=== PATIENT | female | born 1965 | race Caucasian/White ===

== ENCOUNTER → 2018-01-25 01:06 | Outpatient (CLI) | payer BC, SELFPAY ==
--- NOTE | 2018-01-25 13:25 | DI.REPORT_ITS ---
SYMPTOM/DIAGNOSIS: INCREASED SWELLING R22.1, Z83.49, FAMILY H/O THYROID DISEASE. THYROID ULTRASOUND: 01/25 Thyroid ultrasound was performed according to the usual protocol. Right thyroid lobe measures 38 x 31 x 15 mm Left thyroid lobe measures 32 x32 x 15 mm. No dominant thyroid mass seen. There is moderate heterogeneity of both thyroid lobes. The findings are suggestive of multi-nodular goiter. The largest nodules are about 5 mm in diameter bilaterally. CONCLUSION: Findings consistent with multi-nodular goiter. No dominant mass identified.
== END ==
PROVIDERS: PCP Student in an Organized Health Care Education/Training Program; Visit Provider Student in an Organized Health Care Education/Training Program
DX: R22.1 Localized swelling, mass and lump, neck (principal); Z83.49 Family history of other endocrine, nutritional and metabolic diseases; E04.2 Nontoxic multinodular goiter
CPT/HCPCS: 76536

== ENCOUNTER 2018-05-08 00:50 | Outpatient (CLI) | payer BC, SELFPAY ==
--- NOTE | 2018-05-08 15:27 | DI.MAMMO_ITS ---
SYMPTOM/DIAGNOSIS: SCREENING, Z12.31 MAMMOGRAMS: Mammograms were interpreted according to the usual protocol including computer analysis with CAD system, tomosynthesis and C view imaging. Comparison is made with the prior examinations. No suspicious masses or microcalcifications are seen. Well-circumscribed nodules are present in the right breast. These appear stable. Surgical clips are again seen in the right breast. Skin and axillae are unremarkable. IMPRESSION: No evidence for malignancy. Yearly mammography is recommended. Category 2, breast density B. MQSA ASSESSMENT OF FINDINGS: Negative with benign findings. Category 2. Patient will receive a letter notifying them of these results. BI-RADS category B. There are scattered areas of fibroglandular density.
== END 2018-05-08 01:10 ==
PROVIDERS: PCP Student in an Organized Health Care Education/Training Program; Visit Provider Nurse Practitioner Women's Health
DX: Z12.31 Encounter for screening mammogram for malignant neoplasm of breast (principal)
CPT/HCPCS: 77063; 77067

== ENCOUNTER 2018-05-17 11:26 | Outpatient (CLI) | payer BC, SELFPAY ==
--- NOTE | 2018-05-17 11:57 | DI.US_ITS ---
SYMPTOMS/DIAGNOSIS: SUPRASTERNAL SOFT MASS, EVALUATE LOCAL SUPERFICIAL SWELLING MASS, R22.9 ULTRASOUND OF THE NECK: Sonographic evaluation of the neck was performed. No sonographic abnormality is seen in the palpable area as indicated by the patient. Incidental note is made of heterogeneous thyroid gland. It has a similar appearance compared to the ultrasound of the thyroid gland from 01/25/18. IMPRESSION: No sonographic abnormality within the area of concern in the neck.
== END 2018-05-17 11:46 ==
PROVIDERS: PCP Student in an Organized Health Care Education/Training Program; Visit Provider Student in an Organized Health Care Education/Training Program
DX: E07.9 Disorder of thyroid, unspecified (principal); R22.1 Localized swelling, mass and lump, neck
CPT/HCPCS: 76536

== ENCOUNTER 2018-06-04 20:52 | Emergency (ER) | payer BC, SELFPAY ==
[2018-06-04 20:59] VITALS: BP 156/78; PULSE 78; RESP 15; TEMP 37.1; O2SAT 97
--- NOTE | 2018-06-04 21:04 | W.ED.GENAD ---
Discharge Plan Disposition Patient Disposition: HOME Condition: Stable Discharge Details Chief Complaint: RespSymp Clinical Impression: Cough Primary Care Provider: Zeynep Bill ED Provider: Dakota Perdomo Home Meds and New Rx's Prescriptions: New prednisone 20 mg tablet 60 mg PO DAILY 4 Days Qty: 12 RF: 0 Continued ProAir HFA 90 mcg/actuation HFA aerosol inhaler 2 puff IH Q6H PRN (Reason: shortness of breath or wheezing) Qty: 8.5 RF: 0 triamcinolone acetonide 15 GM ointment Topical BID PRNQty: 1 RF: 0 Probiotic 1 EACH capsule 1 ea PO DAILY 90 Days Qty: 1 RF: 0 magnesium oxide 250 MG tablet 500 mg PO DAILY RF: 0 omega-3 fatty acids-fish oil [Fish Oil] 1 EACH capsule 1 ea PO DAILY RF: 0 cholecalciferol (vitamin D3) [Vitamin D3] 2,000 UNIT capsule 6,000 unit PO DAILY RF: 0 cyanocobalamin (vitamin B-12) 2,500 MCG tablet 2,500 mcg PO DAILY RF: 0 omeprazole 20 MG capsule,delayed release(DR/EC) 20 mg PO DAILY Qty: 90 RF: 3 biotin 1 mg capsule 1 mg PO DAILY RF: 0 aspirin 81 MG tablet,chewable 1 tab PO ONCE RF: 0 Discharge Instructions Instructions: Acute Cough (ED) Additional Instructions: Your xray did not show any concerning findings, no pneumonia was seen if cough continues follow up with your primary care provider if you have difficulty breathing, high fevers or severe pain return to the emergency department Medical Decision Making 52 yo female comes in with intermittent cough for 3 weeks, denies hx of asthma or smoking. States her pcp started an inhaler 2 weeks ago but has not had relief. Denies chest pain, dyspnea, fevers, chills. Has clear lung sounds on exam and is speaking in full sentences and appears well systemically but she notes she has felt wheezy. Could be post nasal drip but will xray toe anisha for possible pna and also trial prednisone. Doesn't have cough description typical of pertussis. pt remains stable, xray on my read is negative. If radiology report shows no acute findings will d/c with prednisone, advised f/u with pcp and return precautions given Differential Diagnosis post nasal drip, pna, bronchitis Imaging Data Radiologic Study: Attestation: I personally reviewed and interpreted this imaging study as follows: Imaging: X-Ray My impression: no acute findings Radiologist's impression: no acute findings HPI General Mode of arrival: ambulatory. Date/Time Provider Initiated Documentation: 06/04/18 20:53. Limitations to Documentation: no limitations. Information obtained by: patient. History of Present Illness 52 year old F presents to the emergency department with the chief complaint of cough, described as moderate, Patient started experiencing this week(s) (3) and it has been intermittent. No relieving factors improve symptom(s), No exacerbating factors reported . Patient notes no other symptoms.. Patient did receive the following treatments prior to arrival, other (inhaler) Related Data Home Medications Medication Instructions Recorded Confirmed aspirin 1 tab PO ONCE 06/20/16 06/04/18 triamcinolone acetonide 0 TOPICAL BID PRN #1 tube 09/08/16 05/24/18 Probiotic 1 ea PO DAILY 90 Days #1 tab-cap 03/24/17 06/04/18 cholecalciferol (vitamin D3) 6,000 unit PO DAILY 12/08/17 06/04/18 [Vitamin D3] cyanocobalamin (vitamin B-12) 2,500 mcg PO DAILY 12/08/17 06/04/18 magnesium oxide 500 mg PO DAILY 12/08/17 06/04/18 omega-3 fatty acids-fish oil [Fish 1 ea PO DAILY 12/08/17 06/04/18 Oil] omeprazole 20 mg PO DAILY #90 tab-cap 01/06/18 06/04/18 biotin 1 mg capsule 1 mg PO DAILY cap 05/10/18 06/04/18 albuterol sulfate HFA 90 2 puff IH Q6H PRN #8.5 gm 05/24/18 06/04/18 mcg/actuation aerosol inhaler prednisone 60 mg PO DAILY 4 Days #12 tab 06/04/18 Previous Rx's Medication Instructions Recorded Probiotic 1 ea PO DAILY 90 Days #1 tab-cap 03/24/17 omeprazole 20 mg PO DAILY #90 tab-cap 01/06/18 albuterol sulfate HFA 90 2 puff IH Q6H PRN #8.5 gm 05/24/18 mcg/actuation aerosol inhaler prednisone 60 mg PO DAILY 4 Days #12 tab 06/04/18 Allergies Allergy/AdvReac Type Severity Reaction Status Date / Time Penicillins Allergy Unknown as child Verified 06/04/18 21:02 General Stated Complaint: RespSymp PETEY: 4 Review of Systems Review of Systems All systems reviewed & are unremarkable except as noted in HPI and below Constitutional Denies chills, Denies fever(s) and Denies weakness ENT Denies change in voice Cardiovascular Denies chest pain Gastrointestinal Denies abdominal pain Neurologic Denies weakness PFS Medical History GERD (gastroesophageal reflux disease) Pyloric stenosis, congenital Surgical History Ligation of fallopian tube (10/04/89) Vaginal hysterectomy (04/28/09) Social History adopted: No foster care: No household members: spouse current occupational status: employed current occupation: [employer] Service frequency: 1-2 times per week Smoking/Tobacco Use Status: Former Tobacco Use quit date: 06/06/77 alcohol intake: never substance use type: does not use kristen/protestant: Lutheran Exam Const General: no acute distress Orientation: alert HENMT Head: normal to inspection Ears: external ears normal General nose exam: external nose normal Mouth: moist mucous membranes Eyes General: appearance normal, both eyes and all related structures Neck Neck: normal visual inspection Resp Effort & Inspection: normal respiratory effort and able to speak in complete sentences Cardio Rate: regular rate Skin General skin exam: no rashes or lesions noted Neuro General: alert and oriented x3 Extrem General: normal to inspection Psych Mental Status: mental status grossly normal Course Vital Signs Temperature 37.1 C 06/04/18 20:59 Pulse 78 06/04/18 20:59 Respiratory Rate 15 06/04/18 20:59 Blood Pressure 156/78 H 06/04/18 20:59 Pulse Oximetry 97 06/04/18 20:59 Temperature 37.1 C 06/04/18 20:59 Temperature Source Temporal Artery Scan 06/04/18 20:59 Pulse 78 06/04/18 20:59 Respiratory Rate 15 06/04/18 20:59 Respiratory Effort Non-Labored 06/04/18 21:00 Respiratory Depth Normal 06/04/18 21:00 Blood Pressure 156/78 H 12/30/18 20:59 Blood Pressure Position Sitting 06/04/18 20:59 Pulse Oximetry 97 06/04/18 20:59 Oxygen Delivery Method Room Air 06/04/18 20:59 Oxygen Flow Rate 0 06/04/18 20:59 Pain Level 0 06/04/18 20:59
--- NOTE | 2018-06-04 21:07 | DI.RAD_ITS ---
SYMPTOMS/DIAGNOSIS: COUGH PA AND LATERAL CHEST: Comparison is made with June,. The heart size is normal. The hiatal hernia is again noted. The lungs appear clear with the exception of minimal left basilar scarring or atelectasis. IMPRESSION: Hiatal hernia. No acute abnormality.
--- NOTE | 2018-06-04 21:11 | ED.GENADUL_ITS ---
Discharge Plan Disposition Patient Disposition: HOME Condition: Stable Discharge Details Chief Complaint: RespSymp Clinical Impression: Cough Primary Care Provider: Zeynep Bill ED Provider: Dakota Perdomo Home Meds and New Rx's Prescriptions: New prednisone 20 mg tablet 60 mg PO DAILY 4 Days Qty: 12 RF: 0 Continued ProAir HFA 90 mcg/actuation HFA aerosol inhaler 2 puff IH Q6H PRN (Reason: shortness of breath or wheezing) Qty: 8.5 RF: 0 triamcinolone acetonide 15 GM ointment Topical BID PRNQty: 1 RF: 0 Probiotic 1 EACH capsule 1 ea PO DAILY 90 Days Qty: 1 RF: 0 magnesium oxide 250 MG tablet 500 mg PO DAILY RF: 0 omega-3 fatty acids-fish oil [Fish Oil] 1 EACH capsule 1 ea PO DAILY RF: 0 cholecalciferol (vitamin D3) [Vitamin D3] 2,000 UNIT capsule 6,000 unit PO DAILY RF: 0 cyanocobalamin (vitamin B-12) 2,500 MCG tablet 2,500 mcg PO DAILY RF: 0 omeprazole 20 MG capsule,delayed release(DR/EC) 20 mg PO DAILY Qty: 90 RF: 3 biotin 1 mg capsule 1 mg PO DAILY RF: 0 aspirin 81 MG tablet,chewable 1 tab PO ONCE RF: 0 Discharge Instructions Instructions: Acute Cough (ED) Additional Instructions: Your xray did not show any concerning findings, no pneumonia was seen if cough continues follow up with your primary care provider if you have difficulty breathing, high fevers or severe pain return to the emergency department Medical Decision Making 52 yo female comes in with intermittent cough for 3 weeks, denies hx of asthma or smoking. States her pcp started an inhaler 2 weeks ago but has not had relief. Denies chest pain, dyspnea, fevers, chills. Has clear lung sounds on exam and is speaking in full sentences and appears well systemically but she notes she has felt wheezy. Could be post nasal drip but will xray toe anisha for possible pna and also trial prednisone. Doesn't have cough description typical of pertussis. pt remains stable, xray on my read is negative. If radiology report shows no acute findings will d/c with prednisone, advised f/u with pcp and return precautions given Differential Diagnosis post nasal drip, pna, bronchitis Imaging Data Radiologic Study: Attestation: I personally reviewed and interpreted this imaging study as follows: Imaging: X-Ray My impression: no acute findings Radiologist's impression: no acute findings HPI General Mode of arrival: ambulatory . Date/Time Provider Initiated Documentation: 06/04/18 20:53 . Limitations to Documentation: no limitations . Information obtained by: patient . History of Present Illness 52 year old F presents to the emergency department with the chief complaint of cough, described as moderate, Patient started experiencing this week(s) (3) and it has been intermittent. No relieving factors improve symptom(s), No exacerbating factors reported . Patient notes no other symptoms.. Patient did receive the following treatments prior to arrival, other (inhaler) Related Data Home Medications Medication Instructions Recorded Confirmed aspirin 1 tab PO ONCE 06/20/16 06/04/18 triamcinolone acetonide 0 TOPICAL BID PRN #1 tube 09/08/16 05/24/18 Probiotic 1 ea PO DAILY 90 Days #1 tab-cap 03/24/17 06/04/18 cholecalciferol (vitamin D3) 6,000 unit PO DAILY 12/08/17 06/04/18 [Vitamin D3] cyanocobalamin (vitamin B-12) 2,500 mcg PO DAILY 12/08/17 06/04/18 magnesium oxide 500 mg PO DAILY 12/08/17 06/04/18 omega-3 fatty acids-fish oil [Fish 1 ea PO DAILY 12/08/17 06/04/18 Oil] omeprazole 20 mg PO DAILY #90 tab-cap 01/06/18 06/04/18 biotin 1 mg capsule 1 mg PO DAILY cap 05/10/18 06/04/18 albuterol sulfate HFA 90 2 puff IH Q6H PRN #8.5 gm 05/24/18 06/04/18 mcg/actuation aerosol inhaler prednisone 60 mg PO DAILY 4 Days #12 tab 06/04/18 Previous Rx's Medication Instructions Recorded Probiotic 1 ea PO DAILY 90 Days #1 tab-cap 03/24/17 omeprazole 20 mg PO DAILY #90 tab-cap 01/06/18 albuterol sulfate HFA 90 2 puff IH Q6H PRN #8.5 gm 05/24/18 mcg/actuation aerosol inhaler prednisone 60 mg PO DAILY 4 Days #12 tab 06/04/18 Allergies Allergy/AdvReac Type Severity Reaction Status Date / Time Penicillins Allergy Unknown as child Verified 06/04/18 21:02 General Stated Complaint: RespSymp PETEY: 4 Review of Systems Review of Systems All systems reviewed & are unremarkable except as noted in HPI and below Constitutional Denies chills, Denies fever(s) and Denies weakness ENT Denies change in voice Cardiovascular Denies chest pain Gastrointestinal Denies abdominal pain Neurologic Denies weakness PFS Medical History GERD (gastroesophageal reflux disease) Pyloric stenosis, congenital Surgical History Ligation of fallopian tube (10/04/89) Vaginal hysterectomy (04/28/09) Social History adopted: No foster care: No household members: spouse current occupational status: employed current occupation: [employer] Service frequency: 1-2 times per week Smoking/Tobacco Use Status: Former Tobacco Use quit date: 06/06/77 alcohol intake: never substance use type: does not use kristen/yazdanism: Yazidi Exam Const General: no acute distress Orientation: alert HENMT Head: normal to inspection Ears: external ears normal General nose exam: external nose normal Mouth: moist mucous membranes Eyes General: appearance normal, both eyes and all related structures Neck Neck: normal visual inspection Resp Effort & Inspection: normal respiratory effort and able to speak in complete sentences Cardio Rate: regular rate Skin General skin exam: no rashes or lesions noted Neuro General: alert and oriented x3 Extrem General: normal to inspection Psych Mental Status: mental status grossly normal Course Vital Signs Temperature 37.1 C 06/04/18 20:59 Pulse 78 06/04/18 20:59 Respiratory Rate 15 06/04/18 20:59 Blood Pressure 156/78 H 06/04/18 20:59 Pulse Oximetry 97 06/04/18 20:59 Temperature 37.1 C 06/04/18 20:59 Temperature Source Temporal Artery Scan 06/04/18 20:59 Pulse 78 06/04/18 20:59 Respiratory Rate 15 06/04/18 20:59 Respiratory Effort Non-Labored 06/04/18 21:00 Respiratory Depth Normal 06/04/18 21:00 Blood Pressure 156/78 H 12/30/18 20:59 Blood Pressure Position Sitting 06/04/18 20:59 Pulse Oximetry 97 06/04/18 20:59 Oxygen Delivery Method Room Air 06/04/18 20:59 Oxygen Flow Rate 0 06/04/18 20:59 Pain Level 0 06/04/18 20:59
[2018-06-04] MEDS: predniSONE 20 MG TAB 60 MG PO (21:24)
--- NOTE | 2018-06-04 22:02 | DI.VRAD_ITS ---
EXAM: XR Chest, 2 Views EXAM DATE/TIME: 06/04/2018 9:08 PM CLINICAL HISTORY: 52 years old, female; Signs and symptoms; Cough TECHNIQUE: XR of the chest, 2 views. COMPARISON: CR CHEST 2 VIEWS PA,LAT 06/20/2016 5:11 PM FINDINGS: Lungs: Minimal strandiness in the left lung base is noted. No significant consolidation otherwise. Pleural space: Unremarkable. No pleural effusion. No pneumothorax. Heart/Mediastinum: Heart is not enlarged. A hiatal hernia is again noted with air-fluid level. Bones/joints: Chronic osseous changes. IMPRESSION: 1. Minimal atelectasis/scarring in the left lung base without consolidation. 2. Hiatal hernia. Dictated and Authenticated by: Mook Álvarez MD. Ordering:MAYE Duncan MD
== END 2018-06-04 22:07 | disposition home or self-care (01) ==
PROVIDERS: Emergency Provider Emergency Medicine; PCP Student in an Organized Health Care Education/Training Program
DX: R05 Cough (principal)
CPT/HCPCS: 99283; 71046; J7512

== ENCOUNTER 2018-06-22 02:09 | Outpatient (CLI) | payer BC, SELFPAY ==
--- NOTE | 2018-06-27 12:50 | HOLTER_ITS ---
HOLTER MONITOR REPORT DATE OF DICTATION June 27, 2018 STUDY INDICATION Palpitations. REQUESTING PROVIDER Zeynep Cast D.O. FINDINGS The patient was monitored for 1 day and 23 hours. Baseline rhythm sinus rhythm. Average heart rate 78 beats per minute, range 56 to 170 beats per minute. Rare ectopy, 5 PVCs and 198 PACs. No ventricular tachycardia, atrial fibrillation or SVT. No pauses greater than 3 seconds. No higher degree heart block. 6 patient events. None of these events correlated with arrhythmias. FINAL INTERPRETATION Rare ectopy, otherwise normal study. Olivier Pizarro M.D. DI/gracia T - 06/27/2018
== END 2018-06-22 02:29 ==
PROVIDERS: PCP Student in an Organized Health Care Education/Training Program; Visit Provider Student in an Organized Health Care Education/Training Program
DX: R00.2 Palpitations (principal); I49.3 Ventricular premature depolarization; I49.1 Atrial premature depolarization
CPT/HCPCS: 93225

== ENCOUNTER 2018-06-26 11:57 | Outpatient (CLI) | payer BC, SELFPAY | END 2018-06-26 12:17 | PROVIDERS: PCP Student in an Organized Health Care Education/Training Program; Visit Provider Student in an Organized Health Care Education/Training Program | DX: R00.2 Palpitations (principal); I49.3 Ventricular premature depolarization; I49.1 Atrial premature depolarization | CPT/HCPCS: 93226 ==

== ENCOUNTER 2018-07-12 07:00 | Outpatient (CLI) | payer BC, SELFPAY ==
[2018-07-12 08:33] LABS: Cholesterol 223 mg/dL (50-200)
[2018-07-12 08:42] LABS: TSH (W/Ref FT4) 2.76 uIU/mL (0.358-3.74)
== END 2018-07-12 07:20 ==
PROVIDERS: PCP Student in an Organized Health Care Education/Training Program; Visit Provider Student in an Organized Health Care Education/Training Program
DX: E04.2 Nontoxic multinodular goiter (principal); E06.3 Autoimmune thyroiditis; Z13.220 Encounter for screening for lipoid disorders
CPT/HCPCS: 36415; 82465; 84443

== ENCOUNTER 2018-08-18 01:53 | Outpatient (CLI) | payer BC, SELFPAY ==
--- NOTE | 2018-08-18 13:12 | DI.MAMMO_ITS ---
SYMPTOM/DIAGNOSIS: DIAGNOSTIC, LUMP AXILLARY TAIL, BREAST LUMP AND TENDERNES, N63.0, N64.4 MAMMOGRAMS: Mammograms were interpreted according to the usual protocol including computer analysis with CAD system, tomosynthesis and C view imaging. The breast tissue is composed of fibroglandular densities. There is no dominant mass. A small area of nodularity in the medial portion of the right breast is unchanged when compared with previous images. The patient is status post right breast biopsies. There are no suspicious calcifications. The patient complains of bilateral breast pain, especially in the upper outer quadrant of the right breast.
== END 2018-08-18 02:13 ==
PROVIDERS: PCP Student in an Organized Health Care Education/Training Program; Visit Provider Student in an Organized Health Care Education/Training Program
DX: N64.4 Mastodynia (principal); N63.10 Unspecified lump in the right breast, unspecified quadrant; Z98.890 Other specified postprocedural states
CPT/HCPCS: 77062; 77066; G0279

== ENCOUNTER 2018-08-22 01:23 | Outpatient (CLI) | payer BC, SELFPAY ==
--- NOTE | 2018-08-22 09:22 | DI.COMBO_ITS ---
SYMPTOM/DIAGNOSIS: BREAST LUMP AND TENDERNESS BOTH BREASTS, N63.0, N64.4 ADDITIONAL VIEWS MAMMOGRAM TO COMPLETE EXAM OF 08/18/18: Views were obtained to complete study of 08/18/18. Please see dictation of 08/18/18 exam. BILATERAL BREAST ULTRASOUND: There is no evidence of a right or left solid or cystic mass. SUMMARY: No evidence of malignancy. Category 1. Yearly screening mammography is recommended. Breast density, Category C. SA ASSESSMENT OF FINDINGS: Negative. Category 1. Patient will receive a letter notifying them of these results. Bi-RADS category C. The breasts are heterogeneously dense, which may obscure small masses.
== END 2018-08-22 01:43 ==
PROVIDERS: PCP Student in an Organized Health Care Education/Training Program; Visit Provider Student in an Organized Health Care Education/Training Program
DX: N63.10 Unspecified lump in the right breast, unspecified quadrant; N63.20 Unspecified lump in the left breast, unspecified quadrant; N64.4 Mastodynia
CPT/HCPCS: 76642; 77062; 77066; G0279

== ENCOUNTER 2019-01-29 07:00 | Outpatient (CLI) | payer BC, SELFPAY ==
[2019-01-29 07:39] LABS: HCT 42.5 % (36.0-46.0); HGB 13.6 g/dL (12.0-15.5); Mean Corpuscular Hemoglobin 28.2 pg (27.0-33.0); Mean Corpuscular Volume 88.2 fL (80-95); Mean Platelet Volume 10.9 fL (8.0-11.0); Platelet Count 233 x1000/uL (130-400); RBC 4.82 m/cumm (4.00-5.20); RBC Distribution Width 12.9 % (11.7-14.6); White Blood Cell Count 4.32 k/cumm (4.4-10.8)
[2019-01-29 08:32] LABS: ALT 42 U/L (14-59); AST 19 U/L (15-37); Albumin 3.6 g/dL (3.4-5.0); Alkaline Phosphatase 90 U/L (46-116); Anion Gap 7.6 mmol/L (3-11); BUN 12 mg/dL (7-18); Bilirubin, Total 0.8 mg/dL (0.2-1.0); CO2 30.4 mmol/L (21.0-32.0); CREATININE 0.76 mg/dL (0.55-1.02); Calcium 8.9 mg/dL (8.5-10.1); Chloride 104 mmol/L (98-107); Glucose 113 mg/dL (70-100); Potassium 4.1 mmol/L (3.5-5.1); Sodium 142 mmol/L (136-145); TSH (W/Ref FT4) 2.91 uIU/mL (0.36-3.74); Total Protein 7.1 g/dL (6.4-8.2)
[2019-01-29 08:44] LABS: Vitamin D 25 Total 47.3 ng/ml (30-100)
== END 2019-01-29 07:20 ==
PROVIDERS: PCP Student in an Organized Health Care Education/Training Program; Visit Provider Student in an Organized Health Care Education/Training Program
DX: E06.3 Autoimmune thyroiditis (principal); K58.9 Irritable bowel syndrome, unspecified; R53.83 Other fatigue; L98.9 Disorder of the skin and subcutaneous tissue, unspecified; E04.2 Nontoxic multinodular goiter
CPT/HCPCS: 36415; 80053; 82306; 85027; 84443

== ENCOUNTER 2019-02-20 00:56 | Outpatient (CLI) | payer BC, SELFPAY ==
--- NOTE | 2019-02-20 08:03 | DI.NM_ITS ---
EXAM: NM HEPATOBILIARY CCK GRP CLINICAL HISTORY: RUQ pain TECHNIQUE: CCK HIDA scan was performed according to the usual protocol with intravenous infusion of 4.8 millicuries of technetium 99 labeled mebrofenin and 1.4 micrograms of cholecystokinin COMPARISON: No exams were available for comparison FINDINGS: Following intravenous infusion of radiopharmaceutical, there was prompt homogeneous hepatic uptake an d prompt uptake in the gallbladder, bile ducts and small intestine. Following injection of 1.4 micro grams of cholecystokinin, the gallbladder ejection fraction is calculated at 21% which is in the abno rmally decreased range. IMPRESSION: Abnormally decreased gallbladder ejection fraction of 21 percent. This finding may be associated with chronic cholecystitis.
== END 2019-02-20 01:16 ==
PROVIDERS: PCP Student in an Organized Health Care Education/Training Program; Visit Provider Surgery
DX: R10.11 Right upper quadrant pain (principal); K82.8 Other specified diseases of gallbladder
CPT/HCPCS: 78227

== ENCOUNTER 2019-04-20 06:54 | Day surgery (SDC) | payer BC, SELFPAY ==
[2019-04-20 07:04] VITALS: BP 135/76; PULSE 83; RESP 16; TEMP 36.6; O2SAT 94
[2019-04-20] MEDS: Lactated Ringers 1,000 ML 80 ML IV (07:25)
--- NOTE | 2019-04-20 07:59 | HPE_ITS ---
Date of service: 04/20/19 Time of Service: 08:00 Assessment and Plan Assessment and plan (1) Gastroesophageal reflux disease with esophagitis: Status: Acute Assessment and plan: I advised EGD with possible dilation. The procedure and risks of perforation with need for surgery discussed. Dilation may not improve symptoms or may need to be repeated in the future. May consider biopsy for eosinophilic esophagitis. The patient agrees to proceed. History of Present Illness Narrative: Complains of substernal discomfort about once a week. Feels like a twinge, worse with laying down. Sleeps with special pillow and cannot eat after 5pm. If she does not do this has severe reflux. Is taking PPI daily with good results. Feels occasional throat fullness. Does not having any dysphagia for meat or bread. Recent neck CT normal. Also has discomfort between the shoulder blades that last for a short time. No bloody or black stools Has abdominal pain, feels like diverticulitis is flaring up. Has constipation alternating with normal stool. EGD and colonoscopy 2015 showed esophagitis/Schatzki ring and mild gastritis. Benign colon polyp present. Normal gallbladder US in the past. Recent HIDA showed EF of 21% Review of Systems All systems reviewed & are unremarkable except as noted in HPI and below PFSH Surgical History (Updated 04/20/19 @ 07:03 by Lucinda Hernández) History of surgery (Acute) Bxs from right breast Ligation of fallopian tube (10/04/89) Vaginal hysterectomy (04/28/09) Sparing ovaries, taking out cervix. Dr. García Social History Smoking/Tobacco Use Status: Former Tobacco Use Quit Date: 06/06/77 Tobacco: How many years used: 4 Alcohol Intake: never Drug use: Never Substance use type: does not use Adopted: No Foster care: No Household members: spouse Number of Children: 3 Communication Needs: Corrective Lenses current occupation: [employer] What is your relationship status?: Panel score (0-1 are the most socially isolated patients): 1 What type of physical activity do you participate in: none Frequency: 1-2 times per week [place]/Jehovah'S Witness: Jew Do you feel safe at home: Yes Do you feel safe in your relationship?: Yes Female Reproductive History Menstrual Age of Menarche: 13 Meds Home Medications and Allergies Home Medications Medication Instructions Recorded Confirmed Type aspirin 1 tab PO ONCE 06/20/16 04/20/19 History triamcinolone acetonide 0 TOPICAL BID PRN #1 tube 09/08/16 02/12/19 History Probiotic 1 ea PO DAILY 90 Days #1 tab-cap 03/24/17 04/20/19 Rx Fish Oil 1 ea PO DAILY 12/08/17 04/20/19 History cholecalciferol (vitamin D3) 6,000 unit PO DAILY 12/08/17 04/20/19 History [Vitamin D3] cyanocobalamin (vitamin B-12) 2,500 mcg PO DAILY 12/08/17 04/20/19 History magnesium oxide 500 mg PO DAILY 12/08/17 04/20/19 History omeprazole 20 mg capsule,delayed 20 mg PO DAILY #90 tab-cap 07/21/18 04/20/19 Rx release lovastatin 10 mg tablet 10 mg PO DAILY #90 tab 11/30/18 04/20/19 Rx Allergies Allergy/AdvReac Type Severity Reaction Status Date / Time Penicillins Allergy Unknown as child Verified 04/20/19 07:01 Exam Const General: healthy appearing and not in acute distress Nutritional Appearance: well nourished Orientation: oriented x3 HENMT Head: normal to inspection Eyes Sclera: sclerae normal Pupils: PERRL Neck Neck: no lymphadenopathy Resp Effort & Inspection: normal respiratory effort Auscultation: clear to auscultation bilaterally and no wheezes Cardio Rate: regular rate Rhythm: regular rhythm GI Inspection: non-distended Palpation: soft, no hepatosplenomegaly, no hernias and nontender Skin General skin exam: no rashes or lesions noted Neuro General: alert Cognition: normal cognition Extrem General: normal to inspection Psych Affect: normal affect Attitude: cooperative Results Last Vital Signs Temp 97.9 F 04/20/19 07:04 Pulse 83 04/20/19 07:04 Resp 16 04/20/19 07:04 BP 135/76 04/20/19 07:04 Pulse Ox 94 L 04/20/19 07:04
--- NOTE | 2019-04-20 08:14 | W.PM.DSUDISC ---
Discharge Plan Disposition Patient Disposition: HOME Condition: Good Discharge Details Reason For Visit: EGD Attending Provider: Sandi Randle Primary Care Provider: Zeynep Bill Home Meds and New Rx's Prescriptions: Continued omeprazole 20 mg capsule,delayed release(DR/EC) 20 mg PO DAILY Qty: 90 RF: 3 triamcinolone acetonide 15 GM ointment 0 Topical BID PRNQty: 1 RF: 0 Probiotic 1 EACH capsule 1 ea PO DAILY 90 Days Qty: 1 RF: 0 magnesium oxide 250 MG tablet 500 mg PO DAILY RF: 0 Fish Oil 1 EACH capsule 1 ea PO DAILY RF: 0 cholecalciferol (vitamin D3) [Vitamin D3] 2,000 UNIT capsule 6,000 unit PO DAILY RF: 0 cyanocobalamin (vitamin B-12) 2,500 MCG tablet 2,500 mcg PO DAILY RF: 0 lovastatin 10 mg tablet 10 mg PO DAILY Qty: 90 RF: 3 aspirin 81 MG tablet,chewable 1 tab PO ONCE RF: 0 Discharge Instructions Additional Instructions: Findings: Your EGD showed a moderate sized hiatal hernia. No inflammation was present. Follow up: Routine biopsies were done, my office will contact you with results. You can consider referral for anti-reflux surgery (hiatal hernia repair). Please call if you develop: fevers >101.5 Nausea or Vomiting Abdominal pain that is not transient DAY SURGERY UNIT POST EGD INSTRUCTIONS 1. Because there will be medication in your system for the next 24 hours, you may feel a little sleepy. Your coordination will be affected. Therefore: a. Do not drive or operate dangerous equipment for 24 hours. b. Do not drink alcohol beverages for 24 hours (not even beer). c. Plan to go home and rest for the day. 2. Generally there are no restrictions on your activity after a day or so has gone by, but you may feel a bit fatigued for a few days. 3 After you arrive home you may have a light meal and return to a normal diet as you can tolerate it without feeling sick to your stomach. 4. After surgery, you may feel pain or discomfort. This should be only transient, but if it persists please contact your doctor. 5. If there are any questions regarding the findings of your procedure, please feel free to contact your doctor. 6. If you are unable to contact your doctor with a problem, contact the hospital at [phone]. 7. Continue all your regular medications unless directed otherwise. I understand the above instructions and have no questions. Signature of Patient or Responsible Adult Escort Date/Time Name of Responsible Adult Escort Signature of Nurse Date/Time Activity:: Activity as Tolerated Diet:: As Tolerated Discharge Orders Discharge Orders: Discharge Order (Routine); Ordered 04/20/19 Ordered By: Sandi aRndle DS: Diagnosis Discharge Diagnosis (1) Hiatal hernia: Status: Acute
--- NOTE | 2019-04-20 08:35 | STOM_PTH ---
PATIENT: Celeste Contreras LOC: [facility] U#:[id number] AGE/SX: 53/F ROOM: RE04/20/[address]: Sandi Randle MD : [id number] BED: DIS: 04/20/2019 SPEC #: [id number] RECD: 04/20/19 10:41 STATUS: DENZEL REQ #: [id number] MART: 04/20/19 08:[address]: Sandi Randle DEPT: Surgical Specimen RECD BY: Divya Partida ENTERED: 04/20/19 10:42 SP TYPE: STOMACH OTHR DR: Zeynep Bill DO Tissues: 1 - BIOPSY BOWEL 2 - STOMACH BIOPSY Procedures: GROSS AND MICRO LEVEL 4 Comments: [id number]
[2019-04-20 09:14] VITALS: BP 112/69; PULSE 78; RESP 16; TEMP 35.9; O2SAT 94
--- NOTE | 2019-04-20 11:19 | ENDO_ITS ---
DATE OF PROCEDURE: April 20, 2019 PREOPERATIVE DIAGNOSIS: Reflux. POSTOPERATIVE DIAGNOSIS: Hiatal hernia. PROCEDURE: Esophagogastroduodenoscopy with duodenal and gastric biopsies. SURGEON: Sandi Randle M.D. ANESTHESIA: General. INDICATIONS: This is a 53-year-old woman who reports episodes of reflux that are not controlled with proton pump inhibitors. She also has occasional substernal twinges. She denies any dysphagia. She had a HIDA scan recently that showed a slightly decreased ejection fraction, but did not reproduce a ny symptoms. She denies any significant abdominal pain. PROCEDURE: She was placed in the left lateral decubitus position. Propofol was titrated to sedation . The scope was advanced into her esophagus under direct visualization and down into the stomach and duodenum. There was no duodenitis or ulcers noted. Biopsies were taken from the second portion of the duodenum to evaluate for Celiac disease. The stomach itself showed no inflammation. There were benign Fundic gland polyps present. Routine biopsies were taken from the gastric antrum to evaluate for H. pylori. Retroflex view did show a moderate-sized hiatal hernia. The GE junction was measure d at approximately 35 cm and the diaphragmatic impression was at 39 cm with a subsequent 3-4 cm hiata l hernia. She did have a fairly wide open Schatzki ring and in absence of symptoms, I did not procee d with dilation. There was no evidence of inflammation, masses or Wei's. The air was suctioned from the stomach and the scope withdrawn with no other esophageal lesions found. She tolerated the procedure well and was stable to recovery. She can continue with lifestyle modifications and medications, or could also consider referral for hi atal hernia repair. cc: Zeynep Bill D.O.
== END 2019-04-20 09:59 | disposition home or self-care (01) ==
PROVIDERS: PCP Student in an Organized Health Care Education/Training Program; Visit Provider Surgery
PROC: 0DJ68ZZ Inspection of Stomach, Via Natural or Artificial Opening Endoscopic (ICD-10-PCS; CPT 43235; principal; 2019-04-20 08:15)
DX: K21.9 Gastro-esophageal reflux disease without esophagitis (principal); K44.9 Diaphragmatic hernia without obstruction or gangrene; K31.7 Polyp of stomach and duodenum; K22.2 Esophageal obstruction
CPT/HCPCS: 43239; 88305; NC

== ENCOUNTER 2019-06-29 18:00 | Emergency (ER) | payer BC, SELFPAY ==
[2019-06-29 18:06] VITALS: BP 162/93; PULSE 82; RESP 18; TEMP 36.1; O2SAT 96
--- NOTE | 2019-06-29 18:25 | W.ED.GENAD ---
Discharge Plan Disposition Patient Disposition: HOME Condition: Good Discharge Details Chief Complaint: GenMedical Clinical Impression: Diffuse pain Primary Care Provider: Zeynep Bill ED Provider: Karina Bazzi Home Meds and New Rx's Prescriptions: Continued omeprazole 20 mg capsule,delayed release(DR/EC) 20 mg PO DAILY Qty: 90 RF: 3 triamcinolone acetonide 15 GM ointment 0 Topical BID PRNQty: 1 RF: 0 Probiotic 1 EACH capsule 1 ea PO DAILY 90 Days Qty: 1 RF: 0 magnesium oxide 250 MG tablet 500 mg PO DAILY RF: 0 Fish Oil 1 EACH capsule 1 ea PO DAILY RF: 0 cholecalciferol (vitamin D3) [Vitamin D3] 2,000 UNIT capsule 6,000 unit PO DAILY RF: 0 cyanocobalamin (vitamin B-12) 2,500 MCG tablet 2,500 mcg PO DAILY RF: 0 lovastatin 10 mg tablet 10 mg PO DAILY Qty: 90 RF: 3 aspirin 81 MG tablet,chewable 1 tab PO DAILY RF: 0 cod liver oil Capsule 1 cap PO DAILY RF: 0 Spirulina Powder 3 MISCELLANEOUS RF: 0 Discharge Instructions Additional Instructions: Encourage water intake. Tylenol and/or ibuprofen as needed for discomfort. Begin exercising on a daily basis. Please follow-up with primary care next week for reevaluation. Take a Lyme panel pending. If you develop any fever/chills, increased pain, difficulty breathing or other new/worsening symptoms please seek care urgently once again. Stand Alone Forms: Physical Therapy Referral Referrals: Zeynep Bill DO [Primary Care Provider] - Medical Decision Making Patient is a 53-year-old female with history of GERD, hepatic cyst, hiatal hernia, impaired fasting glucose, lung nodule, KETTY, Schatzki's ring, steatosis of the liver, periodic flutter, IBS, Nighat's thyroiditis. She is presenting today with chief complaint of diffuse pain. She reports she has had intermittent pain, worse between her shoulder blades, for the past few months. Also reports that she has had some discomfort in her abdomen and diffuse discomfort including her extremities. At this time, pain is only between the shoulder blades. She reports that the pain is been intermittent but more consistent for the past 2 days. States she can have pain diffusely and describes generalized achiness. Has not noted to be worse with deep breathing, no fevers, no cough, no chest pain, does not feel worse with exertion, does not feel worse with stretching or movement, does not feel worse with any heavy lifting. No trauma. No change after eating. She reports she recently had an upper endoscopy for her GERD. Also had a recent ultrasound to evaluate her gallbladder. She advised no acute abnormality was noted on either of these studies. On exam, patient is resting comfortably. I am unable to elicit any discomfort on exam. No midline tenderness, paraspinal tenderness. She has full range of motion. No muscle spasm. No focal tenderness with palpation or movement. No pain with AP or lateral compression. No abdominal tenderness. No chest pain. At this point, I differential is wide. She has no focal abnormalities. No weakness. It sounds to be an acute on chronic issue. Unclear as to how long she has had this chronic pain but extensive this has been going on for months with acute increase over the past few days. Plan for baseline labs and chest x-ray. FINDINGS: Lungs: Left basilar streaky opacity consistent with atelectasis. Lungs are otherwise clear. Pleural space: Unremarkable. No pleural effusion. No pneumothorax. Heart/Mediastinum: Borderline enlarged cardiomediastinal silhouette. Moderate size hiatal hernia. Bones/joints: Unremarkable. IMPRESSION: 1. No acute cardiopulmonary process. 2. Moderate hiatal hernia. Labs reviewed. No leukocytosis. No electrolyte abnormalities. TSH is 3.78 but free T4 is normal at 1.26. She has trace lysed blood in her urine, otherwise without abnormality. Tick and Lyme panel pending. Discussed these findings with the patient. She is questioning if this may be associate with fibromyalgia. I advised that this is a chronic issue and she should discuss this further with her primary care provider. At this point, I do not see any evidence of emergent etiology. She was given return precautions. A referral for physical therapy was given. Encourage water intake. We did discuss home remedies [id number] medications that may help with symptomatic management. She was given return precautions. Advised that we will contact her with any positive results from her tick and Lyme panel. All of her questions or concerns were addressed and she is in agreement this plan. HPI General Mode of arrival: ambulatory. Date/Time Provider Initiated Documentation: 06/29/19 18:25. Limitations to Documentation: no limitations. Information obtained by: patient and RN notes reviewed. History of Present Illness 53 year old F presents to the emergency department with the chief complaint of diffuse body pain, maximal between shoulder blades, flank, abdominal pain, described as moderate, Quality is described as aching (diffuse), Patient started experiencing this day(s) and it has been intermittent. No relieving factors improve symptom(s), No exacerbating factors reported . Patient notes no other symptoms.; denies chest pain, cough, diaphoresis, fever/chills, headaches, loss of appetite, nausea/vomiting, rash and shortness of breath. Patient did receive the following treatments prior to arrival, none Related Data Home Medications Medication Instructions Recorded Confirmed aspirin 1 tab PO DAILY 06/20/16 06/29/19 triamcinolone acetonide 0 TOPICAL BID PRN #1 tube 09/08/16 02/12/19 Probiotic 1 ea PO DAILY 90 Days #1 tab-cap 03/24/17 06/29/19 Fish Oil 1 ea PO DAILY 12/08/17 06/29/19 cholecalciferol (vitamin D3) 6,000 unit PO DAILY 12/08/17 06/29/19 [Vitamin D3] cyanocobalamin (vitamin B-12) 2,500 mcg PO DAILY 12/08/17 06/29/19 magnesium oxide 500 mg PO DAILY 12/08/17 06/29/19 omeprazole 20 mg capsule,delayed 20 mg PO DAILY #90 tab-cap 07/21/18 06/29/19 release lovastatin 10 mg tablet 10 mg PO DAILY #90 tab 11/30/18 06/29/19 Spirulina 3 MISCELLANEOUS 06/29/19 cod liver oil 1 cap PO DAILY 06/29/19 06/29/19 Previous Rx's Medication Instructions Recorded Probiotic 1 ea PO DAILY 90 Days #1 tab-cap 03/24/17 omeprazole 20 mg capsule,delayed 20 mg PO DAILY #90 tab-cap 07/21/18 release lovastatin 10 mg tablet 10 mg PO DAILY #90 tab 11/30/18 Allergies Allergy/AdvReac Type Severity Reaction Status Date / Time Penicillins Allergy Unknown as child Verified 06/29/19 18:09 General Stated Complaint: GenMedical PETEY: 3 Review of Systems Constitutional Constitutional: Reports as per HPI, Denies chills, Denies fever(s), Denies headache(s), Denies lethargy and Denies poor appetite Eyes Eyes: Denies change in vision ENT Ears, Nose, Mouth, and Throat: Denies dizziness, Denies headache(s) and Denies neck pain Cardiovascular Cardiovascular: Reports as per HPI, Denies chest pain, Denies chest pain at rest, Denies chest pain with activity, Denies diaphoresis, Denies pedal edema, Denies lightheadedness, Denies radiating jaw, neck or arm pain, Denies palpitations, Denies dyspnea and Denies dyspnea on exertion Respiratory Respiratory: Reports as per HPI, Denies chest congestion, Denies cough, Denies pain on inspiration, Denies pain with cough, Denies dyspnea, Denies dyspnea on exertion and Denies wheezing Gastrointestinal Gastrointestinal: Reports as per HPI, Denies abdominal pain, Denies diarrhea, Denies nausea and Denies vomiting Musculoskeletal Musculoskeletal: Reports as per HPI, Reports back pain, Reports myalgias, Denies deformity, Denies arthralgias, Denies joint swelling, Denies limited range of motion, Denies muscle cramps and Denies neck pain Integumentary/Breasts Skin/Breast: Reports as per HPI and Denies rash Neurologic Neurologic: Reports as per HPI, Denies dizziness and Denies headache(s) Endocrine Endocrine: Denies palpitations Allergic/Immunologic Allergic/Immunologic: Denies wheezing [facility] Medical History GERD (gastroesophageal reflux disease) Nighat's thyroiditis (Acute) 03/08/18 [place] [facility] [place] Pyloric stenosis, congenital Resolved on its own w/o surgery per pt Surgical History History of surgery (Acute) Bxs from right breast Ligation of fallopian tube (10/04/89) Vaginal hysterectomy (04/28/09) Sparing ovaries, taking out cervix. Dr. García Social History Smoking/Tobacco Use Status: Former Tobacco Use Quit Date: 06/06/77 Tobacco: How many years used: 4 Alcohol Intake: never Drug use: Never Substance use type: does not use Adopted: No Foster care: No Household members: spouse Number of Children: 3 Communication Needs: Corrective Lenses current occupation: [employer] What is your relationship status?: Panel score (0-1 are the most socially isolated patients): 1 What type of physical activity do you participate in: none Frequency: 1-2 times per week [place]/Zoroastrianism: Christianity Do you feel safe at home: Yes Do you feel safe in your relationship?: Yes Female Reproductive History Menstrual Age of Menarche: 13 Exam Const General: cooperative, healthy appearing, comfortable, no acute distress and well developed Nutritional Appearance: well nourished and overweight Orientation: alert, awake and oriented x3 HENMT Head: normal to inspection Ears: hearing grossly normal bilaterally Mouth: moist mucous membranes Chest Chest: normal inspection of the chest, normal palpation of entire chest wall, no crepitus, no localized rib tenderness and no tenderness Resp Effort & Inspection: normal respiratory effort, able to speak in complete sentences and no respiratory distress Auscultation: clear to auscultation bilaterally, no rales, no rhonchi and no wheezes Cardio Rate: regular rate Rhythm: regular rhythm Heart Sounds: S1 normal and S2 normal GI Inspection: normal to inspection, no edema and non-distended Palpation: soft, no hepatosplenomegaly, not firm, no guarding, not rigid and nontender Auscultation: normal bowel sounds Back/Spine/Pelvis Back: no CVA tenderness Cervical Spine: normal cervical lordosis and cervical ROM normal Thoracic/Lumbar Spine: thoracic and lumbar spine normal to inspection, thoraco-lumbar ROM normal, No bend over test abnormal, No kyphosis, No mass, No pain with thoraco-lumbar ROM, No paraspinal tenderness, No thoraco-lumbar ROM limited, No scoliosis, No thoraco-lumbar spasm, No thoracic spinal tenderness, No lumbar spinal tenderness and No straight leg raise positive Pelvis: no pain with anterior-posterior compression and no pain with lateral compression Sacroiliac joints: bilaterally nontender Skin General skin exam: no rashes or lesions noted Trauma: no lacerations or abrasions Neuro General: alert, awake and oriented x3 Cognition: normal cognition Speech: speech normal Gait: normal gait Extrem General: normal to inspection, normal capillary refill, no pedal edema, no calf tenderness and normal gait Psych Appearance: grossly normal and well kempt Mental Status: mental status grossly normal Speech and Movement: speech and movement normal Course Vital Signs Vital signs: Vital Signs Temperature 36.1 C L 06/29/19 18:06 Pulse 82 06/29/19 18:06 Respiratory Rate 18 06/29/19 18:06 Blood Pressure 162/93 H 06/29/19 18:06 Pulse Oximetry 96 06/29/19 18:06 Temperature 36.1 C L 06/29/19 18:06 Temperature Source Skin 06/29/19 18:06 Pulse 82 06/29/19 18:06 Respiratory Rate 18 06/29/19 18:06 Respiratory Effort Non-Labored 06/29/19 18:07 Blood Pressure 162/93 H 06/29/19 18:06 Blood Pressure Position Sitting 06/29/19 18:06 Pulse Oximetry 96 06/29/19 18:06 Oxygen Delivery Method Room Air 06/29/19 18:06 Oxygen Flow Rate 0 06/29/19 18:06
[2019-06-29 18:40] LABS: Bilirubin Negative (Negative); Blood Trace-lysed (Negative); Clarity Clear (Clear); Glucose Negative (Negative); Ketones Negative (Negative); Leukocyte Esterase Negative (Negative); Nitrite Negative (Negative); Urobilinogen 0.2 EU/dL (Up TO 0.2); pH 5.5 (5-8)
[2019-06-29 18:53] LABS: Bacteria Few HPF (Negative); C & S Indicated? Yes; Casts Negative LPF (Negative); Crystals Negative HPF (Negative); Epithelial Cells Rare HPF (Negative); Mucus Negative (Negative); RBC 0-2 HPF (0-2)
[2019-06-29 18:59] LABS: Abs Immature Grans 0.02 k/cumm (0.0-0.09); Absolute Basophil Count 0.03 k/cumm (0.0-0.2); Absolute Eosinophil Count 0.08 k/cumm (0.0-0.7); Absolute Lymphocyte Count 2.32 k/cumm (1.2-3.4); Basophils % 0.3; Eosinophils % 0.9; HCT 42.3 % (36.0-46.0); HGB 14.1 g/dL (12.0-15.5); Immature Grans % 0.2 %; Lymphocytes % 24.8; Mean Corp. HGB Concentration 33.3 g/dL (32.0-36.0); Mean Corpuscular Hemoglobin 28.4 pg (27.0-33.0); Mean Corpuscular Volume 85.1 fL (80-95); Mean Platelet Volume 11.3 fL (8.0-11.0); Monocytes % 9.6; Neutrophils % 64.2; Platelet Count 226 x1000/uL (130-400); RBC 4.97 m/cumm (4.00-5.20); RBC Distribution Width 12.8 % (11.7-14.6); White Blood Cell Count 9.35 k/cumm (4.4-10.8)
[2019-06-29 19:20] LABS: ALT 35 U/L (14-59); AST 14 U/L (15-37); Albumin 3.9 g/dL (3.4-5.0); Alkaline Phosphatase 103 U/L (46-116); Anion Gap 7.5 mmol/L (3-11); BUN 17 mg/dL (7-18); Bilirubin, Total 0.8 mg/dL (0.2-1.0); CO2 29.5 mmol/L (21.0-32.0); CREATININE 0.86 mg/dL (0.55-1.02); Calcium 10.4 mg/dL (8.5-10.1); Chloride 101 mmol/L (98-107); Glucose 108 mg/dL (74-106); Magnesium 1.8 mg/dL (1.8-2.4); Potassium 3.7 mmol/L (3.5-5.1); Sodium 138 mmol/L (136-145); TSH (W/Ref FT4) 3.78 uIU/mL (0.36-3.74); Total Protein 7.7 g/dL (6.4-8.2); Troponin I < 0.05 ng/Ml (<0.06)
[2019-06-29 19:36] LABS: FREE T4 1.26 ng/dL (0.76-1.46)
--- NOTE | 2019-06-29 19:44 | DI.RAD_ITS ---
EXAM: XR CHEST 2V PA LATERAL INDICATION: upper chest pain. COMPARISON: XR CHEST 2V PA LATERAL from 06/04/2018 TECHNIQUE: 2D digital imaging was performed. FINDINGS: Heart size is normal. A hiatal hernia is again noted. The lungs appear clear. There is minimal bas ilar scarring. IMPRESSION: No acute abnormality.
--- NOTE | 2019-06-29 19:53 | DI.VRAD_ITS ---
PROCEDURE INFORMATION: Exam: XR Chest, 2 Views Exam date and time: 06/29/2019 7:46 PM Age: 53 years old Clinical indication: Other: Upper chest pain TECHNIQUE: Imaging protocol: XR of the chest Views: 2 views. COMPARISON: CR XR CHEST 2V PA LATERAL 06/04/2018 9:28 PM FINDINGS: Lungs: Left basilar streaky opacity consistent with atelectasis. Lungs are otherwise clear. Pleural space: Unremarkable. No pleural effusion. No pneumothorax. Heart/Mediastinum: Borderline enlarged cardiomediastinal silhouette. Moderate size hiatal hernia. Bones/joints: Unremarkable. IMPRESSION: 1. No acute cardiopulmonary process. 2. Moderate hiatal hernia. Dictated and Authenticated by: Ugo Osborn MD. Ordering:KAMINI Collins MD
[2019-07-02 13:55] LABS: Lyme Ab w Rflx to Lyme Confirm Negative (Negative)
[2019-07-04 17:28] LABS: Anaplasma phagocytophilum Negative (Negative); B. miyamotoi PCR Negative (Negative); Babesia divergens/MO-1 Negative (Negative); Babesia duncani Negative (Negative); Babesia microti Negative (Negative); Ehrlichia chaffeensis Negative (Negative); Ehrlichia ewingii/canis Negative (Negative); Ehrlichia muris eauclairensis Negative (Negative)
== END 2019-06-29 20:20 | disposition home or self-care (01) ==
PROVIDERS: Emergency Provider Physician Assistant; PCP Student in an Organized Health Care Education/Training Program
DX: M54.6 Pain in thoracic spine (principal); M54.5 Low back pain; R10.84 Generalized abdominal pain
CPT/HCPCS: 36415; 80053; 87798; 93005; 99284; 71046; 81003; 81015; 83735; 84439; 84443; 84484; 85025; 86618; 87086; 93010; 99285

== ENCOUNTER 2019-11-09 01:30 | Outpatient (CLI) | payer BC, SELFPAY ==
--- NOTE | 2019-11-09 13:16 | DI.RAD_ITS ---
EXAM: XR ABDOMEN FLAT PLATE CLINICAL HISTORY: possible renal calculi; KUB TECHNIQUE: COMPARISON: No exams were available for comparison FINDINGS: Two views were obtained. Fecal material overlies the left kidney. There are faint nonspecific calci fications in the pelvis, most of which are probably phleboliths. Ureteral stone not entirely exclude d. No definite renal stones seen. No other significant findings. IMPRESSION: Indeterminate calcifications in the pelvis, probably phleboliths. If there is a high clinical suspic ion ureteral stone additional evaluation with CT or IVP may be considered.
== END 2019-11-09 01:50 ==
PROVIDERS: PCP Student in an Organized Health Care Education/Training Program; Visit Provider Student in an Organized Health Care Education/Training Program
DX: N20.0 Calculus of kidney (principal)
CPT/HCPCS: 74018

== ENCOUNTER 2019-12-05 04:06 | Outpatient (CLI) | payer BC, SELFPAY ==
[2019-12-05 07:21] LABS: HCT 44.5 % (36.0-46.0); HGB 14.7 g/dL (12.0-15.5); Mean Corpuscular Hemoglobin 28.9 pg (27.0-33.0); Mean Corpuscular Volume 87.4 fL (80-95); Mean Platelet Volume 11.1 fL (8.0-11.0); Platelet Count 237 x1000/uL (130-400); RBC 5.09 m/cumm (4.00-5.20); RBC Distribution Width 12.9 % (11.7-14.6); White Blood Cell Count 5.18 k/cumm (4.4-10.8)
[2019-12-05 08:26] LABS: ALT 50 U/L (14-59); AST 22 U/L (15-37); Alkaline Phosphatase 77 U/L (46-116); Anion Gap 7.5 mmol/L (3-11); BUN 12 mg/dL (7-18); Bilirubin, Total 1.1 mg/dL (0.2-1.0); CO2 30.5 mmol/L (21.0-32.0); CREATININE 0.82 mg/dL (0.55-1.02); Calcium 9.3 mg/dL (8.5-10.1); Calculated LDL 112 mg/dL (<100); Chloride 103 mmol/L (98-107); Cholesterol 205 mg/dL (<200); Ferritin 56 ng/mL (8-252); Glucose 114 mg/dL (74-106); HDL Cholesterol 52 mg/dL (40-60); Magnesium 2.1 mg/dL (1.8-2.4); Potassium 4.2 mmol/L (3.5-5.1); Sodium 141 mmol/L (136-145); Total Protein 7.3 g/dL (6.4-8.2); Triglyceride 206 mg/dL (<150)
[2019-12-05 08:45] LABS: FREE T4 1.11 ng/dL (0.76-1.46)
[2019-12-05 17:22] LABS: T3,Free 3.5 pg/mL (2.8-5.3)
[2019-12-06 04:23] LABS: Vitamin D 25 Total 46.1 ng/ml (30-100)
== END 2019-12-05 04:26 ==
PROVIDERS: PCP Student in an Organized Health Care Education/Training Program; Visit Provider Student in an Organized Health Care Education/Training Program
DX: G47.33 Obstructive sleep apnea (adult) (pediatric) (principal); K21.0 Gastro-esophageal reflux disease with esophagitis; R53.83 Other fatigue; G25.81 Restless legs syndrome; Z13.220 Encounter for screening for lipoid disorders; E46 Unspecified protein-calorie malnutrition; M89.8X9 Other specified disorders of bone, unspecified site; E06.3 Autoimmune thyroiditis; E86.0 Dehydration; R16.0 Hepatomegaly, not elsewhere classified; R73.01 Impaired fasting glucose
CPT/HCPCS: 36415; 80053; 80061; 82306; 85027; 82728; 83735; 84439; 84443; 84481

== ENCOUNTER 2020-01-03 01:50 | Outpatient (CLI) | payer BC, SELFPAY ==
--- NOTE | 2020-01-03 13:13 | DI.CT_ITS ---
EXAM: CT CHEST WO CLINICAL HISTORY: assess lung nodule for change/growth,R91.1 TECHNIQUE: Imaging Protocol: Axial computed tomography images with coronal and sagittal reformatted images were created and reviewed CONTRAST MATERIAL: Noncontrast. COMPARISON: CT RENAL COLIC WO CONTRAST from 01/29/2016 CT CHEST WITH CONTRAST from 08/10/2016 CT CHEST WITH CONTRAST from 03/07/2017 FINDINGS: Tracheobronchial tree: Patent where visualized. Mediastinum and Marlen: No dominant adenopathy or fluid collection. Pulmonary parenchyma: No consolidation or dominant measurable mass. Minimal scarring at the inferior lingula and right middle lobe.. There has been no change in size or appearance of a 6 millimeter n odule at the right posterior lung base. Pleura: No effusion or pneumothorax. Heart: The heart is not dilated. No coronary artery calcifications are seen. Aorta: Thoracic aorta non-dilated. Upper abdomen: Enlarged fatty liver. Stable low-density lesions, presumably cysts. Large hiatal he rnia.. Bones: Normal. Soft tissues: Unremarkable. IMPRESSION: Stable 6 millimeter nodule in the right lower lobe. Unless the patient is at is at increased risk fo r lung cancer, no further follow-up is necessary. RADIATION DOSE DELIVERED: 530.95mGy.cm Total DLP DATA REPOSITORY: All CT scans at this facility are submitted to the National Radiology Data Registry (NRDR) Dose Index Registry (DIR) with the [employer] (A[employer]). RADIATION OPTIMIZATION: All CT scans at this facility use at least one of these dose optimization te chniques: automated exposure control; mA and/or kV adjustment per patient size (includes targeted exa ms where dose is matched to clinical indication); or iterative reconstruction.
== END 2020-01-03 02:10 ==
PROVIDERS: PCP Student in an Organized Health Care Education/Training Program; Visit Provider Student in an Organized Health Care Education/Training Program
DX: R91.1 Solitary pulmonary nodule (principal)
CPT/HCPCS: 71250

== ENCOUNTER 2020-04-23 02:56 | Outpatient (CLI) | payer BC, SELFPAY ==
[2020-04-23 10:45] LABS: FREE T4 1.08 ng/dL (0.76-1.46)
[2020-05-08 11:44] LABS: T3,Free 3.6 pg/mL
== END 2020-04-23 03:16 ==
PROVIDERS: PCP Student in an Organized Health Care Education/Training Program; Visit Provider Student in an Organized Health Care Education/Training Program
DX: E04.2 Nontoxic multinodular goiter (principal); E06.3 Autoimmune thyroiditis
CPT/HCPCS: 36415; 84439; 84443; 84481

== ENCOUNTER 2020-05-12 00:25 | Outpatient (CLI) | payer BC, SELFPAY ==
--- NOTE | 2020-05-12 06:30 | DI.US_ITS ---
EXAM: US SOFT TISSUE EXTREMITY CLINICAL HISTORY: Evaluate localized tenderness,lt thigh pain,[id number]. TECHNIQUE: Ultrasound was performed using standard protocol. COMPARISON: No exams were available for comparison FINDINGS: Sonographic assessment utilizing grayscale and color Doppler imaging was performed and targeted to th e area of clinical concern. Submitted images reveal no evidence of solid or cystic mass. No obvious muscle tear in this region. No evidence of intermuscular nor intramuscular fluid. IMPRESSION: No evidence of obvious muscle tear, mass, nor fluid collection. If clinically indicated follow-up MR I can be performed. DATA REPOSITORY:
--- NOTE | 2020-05-12 06:30 | DI.US_ITS ---
EXAM: US ABDOMEN CLINICAL HISTORY: off/on abdominal pain, mostly rt,colicy ruq abd pain TECHNIQUE: Ultrasound abdomen performed using standard protocol. COMPARISON: No exams were available for comparison FINDINGS: ABDOMINAL AORTA AND IVC: Visualized portions normal caliber. PANCREAS: Normal where visualized. LIVER: Mildly enlarged. Hyperechoic indicating steatosis. There are also multiple focal liver findi ngs. The largest is a cyst in the left lobe which measures 2.4 x 2.4 centimeter. Three other smalle r cysts are evident in the right hepatic lobe, these measuring up to 1.5 centimetres in size. One of these exhibit some internal echoes. GALLBLADDER: No evidence of cholelithiasis. No evidence of wall thickening. No pericholecystic fluid identified. BILIARY SYSTEM: Common bile duct measures 3 millimeters. No intrahepatic biliary ductal dilation. GARCIA'S SIGN: Negative. KIDNEYS: Left kidney appears appears unremarkable. There are 2 small nonobstructive calculi in the r ight kidney, both measuring 3-4 millimeters. No evidence of hydronephrosis. No renal mass or cyst id entified. SPLEEN: Not enlarged. ASCITES: None seen. IMPRESSION: 1. No evidence of cholelithiasis nor dilatation of the biliary tree 2. Hepatic steatosis. In addition, there are 4 focal findings in the liver, largest being is cyst in the left hepatic lobe measuring 2.4 x 2.4 centimeters. There are 2 smaller cysts in the right hepat ic lobe and the another finding in the right lobe which has some internal echoes and therefore not a simple cyst and will require appropriate follow-up. 3. Small echogenic foci consistent with 2 probable small nonobstructive calculi in the right kidney, both measuring approximately 3-4 millimeters. No obvious calculi evident in the left kidney. Both k idneys exhibit normal size. 4. There is no ascites. DATA REPOSITORY:
== END 2020-05-12 00:45 ==
PROVIDERS: PCP Student in an Organized Health Care Education/Training Program; Visit Provider Student in an Organized Health Care Education/Training Program
DX: M79.652 Pain in left thigh (principal); R10.11 Right upper quadrant pain; K76.0 Fatty (change of) liver, not elsewhere classified; K76.89 Other specified diseases of liver; R93.421 Abnormal radiologic findings on diagnostic imaging of right kidney
CPT/HCPCS: 76881; 76700

== ENCOUNTER 2020-06-23 01:14 | Outpatient (CLI) | payer BC, SELFPAY ==
--- NOTE | 2020-06-23 07:30 | DI.MAMMO_ITS ---
EXAM: MG MAMMO SCREENING CLINICAL HISTORY: screening,Z12.39 TECHNIQUE: Bilateral full field digital CC and MLO mammographic images were obtained with 3D tomosyn thesis and utilizing computer aided detection (CAD). COMPARISON: Available for comparison. FINDINGS: Masses/Architectural Distortion: None seen. Stable right breast nodules are identified. There are st able biopsy clips in the right breast. Microcalcifications: No suspicious pleomorphic-type are seen. Skin Thickening/Nipple Retraction: None. IMPRESSION: 1. No significant interval change with no specific features of malignancy noted. 2. Unless there is more urgent need, screening mammography is recommended, as per [employer] guidelines. BI-RADS Category 2 - Benign Findings Breast Density - Category B - Scattered areas of fibroglandular density Breast density category C or D implies that the patient has dense breast tissue. Dense breast tissue is very common and is not abnormal but dense breast tissue can make it harder to find cancer on a ma mmogram. Also, dense breast tissue may increase their breast cancer risk. This information about the result of the mammogram report was provided to the patient to raise their awareness. Use this report when you speak with the patient about their risks for breast cancer, which includes their family hist ory. At that time, you may recommend for more screening tests (Ultrasound or MRI) as they might be us eful based on their risk. A negative radiographic report should not delay biopsy if a dominant or clinically suspicious mass is present. Up to ten percent of cancers are not identified on mammography. A negative report may reinforce clinical impression. Adenosis and dense breasts may obscure an underlying neoplasm. False positive reports average 6 to 10%. Patient will receive a letter notifying them of these results.
== END 2020-06-23 01:34 ==
PROVIDERS: PCP Student in an Organized Health Care Education/Training Program; Visit Provider Student in an Organized Health Care Education/Training Program
DX: Z12.31 Encounter for screening mammogram for malignant neoplasm of breast (principal)
CPT/HCPCS: 77063; 77067

== ENCOUNTER 2020-09-09 04:02 | Outpatient (CLI) | payer BC, SELFPAY ==
[2020-09-09 07:40] LABS: HCT 43.7 % (36.0-46.0); HGB 14.4 g/dL (11.2-15.7); MCH 28.7 pg (27.0-33.0); MCV 87.1 fL (80-95); MPV 10.9 fL (8.0-11.0); Platelet Count 205 10^3/uL (130-400); RBC 5.02 10^6/uL (3.93-5.22); RDW-SD 38.7 fL; WBC 4.98 10^3/uL (4.4-10.8)
[2020-09-09 08:34] LABS: ALT 42 U/L (14-59); AST 17 U/L (15-37); Alkaline Phosphatase 89 U/L (46-116); Anion Gap 9.2 mmol/L (3-11); BUN 16 mg/dL (7-18); Bilirubin, Total 1.3 mg/dL (0.2-1.0); CO2 29.8 mmol/L (21.0-32.0); CREATININE 0.8 mg/dL (0.55-1.02); Calcium 9.2 mg/dL (8.5-10.1); Calculated LDL 105 mg/dL (<100); Chloride 103 mmol/L (98-107); Cholesterol 184 mg/dL (<200); Glucose 112 mg/dL (74-106); HDL Cholesterol 51 mg/dL (40-60); Sodium 142 mmol/L (136-145); TSH (W/Ref FT4) 2.92 uIU/mL (0.36-3.74); Total Protein 7.3 g/dL (6.4-8.2); Triglyceride 141 mg/dL (<150)
[2020-09-09 08:48] LABS: Hemoglobin A1C 5.9 % (<5.7)
[2020-09-09 17:10] LABS: T3,Free 3.6 pg/mL (2.8-5.3)
[2020-09-11 04:37] LABS: Vitamin D 25 Total 37.3 ng/mL (30-100)
== END 2020-09-09 04:03 | disposition home or self-care (01) ==
LOC: LBO 04:02
PROVIDERS: PCP Student in an Organized Health Care Education/Training Program; Visit Provider Student in an Organized Health Care Education/Training Program
DX: I10 Essential (primary) hypertension (principal); R73.01 Impaired fasting glucose; E04.2 Nontoxic multinodular goiter; E06.3 Autoimmune thyroiditis; E46 Unspecified protein-calorie malnutrition; K21.00 Gastro-esophageal reflux disease with esophagitis, without bleeding; K58.9 Irritable bowel syndrome, unspecified; K76.0 Fatty (change of) liver, not elsewhere classified; M85.88 Other specified disorders of bone density and structure, other site
CPT/HCPCS: 36415; 80053; 80061; 82306; 85027; 83036; 84443; 84481

== ENCOUNTER 2021-03-15 10:24 | Emergency (ER) | payer BC, SELFPAY ==
[2021-03-15] VITALS (64 sets, daily range): BP systolic 107–137; BP diastolic 60–97; PULSE 66–77; RESP 14; TEMP 36.8–37; O2SAT 94–98
[2021-03-15 10:45] LABS: Abs Immature Grans 0.02 10^3/uL (0.0-0.06); Absolute Basophil Count 0.04 10^3/uL (0.0-0.2); Absolute Eosinophil Count 0.06 10^3/uL (0.0-0.7); Absolute Lymphocyte Count 1.65 10^3/uL (1.2-3.4); Absolute Monocyte Count 0.62 10^3/uL (0.1-0.8); Absolute Neutrophil Count 5.55 10^3/uL (1.2-6.7); Basophils % 0.5; Eosinophils % 0.8; HCT 45.9 % (36.0-46.0); HGB 14.8 g/dL (11.2-15.7); Immature Grans % 0.3; Lymphocytes % 20.8; MCH 28.6 pg (27.0-33.0); MCHC 32.2 % (32.0-36.0); MCV 88.6 fL (80-95); MPV 10.8 fL (8.0-11.0); Monocytes % 7.8; Neutrophils % 69.8; Nucleated RBC 0 %; Platelet Count 222 10^3/uL (130-400); RBC 5.18 10^6/uL (3.93-5.22); RDW 12.2 % (11.7-14.6); RDW-SD 40.3 fL; WBC 7.94 10^3/uL (4.4-10.8)
[2021-03-15 10:59] LABS: ALT 32 U/L (14-59); AST 14 U/L (15-37); Albumin 4.2 g/dL (3.4-5.0); Alkaline Phosphatase 108 U/L (46-116); Anion Gap 5.3 mmol/L (3-11); BUN 13 mg/dL (7-18); CO2 31.7 mmol/L (21.0-32.0); CREATININE 0.8 mg/dL (0.55-1.02); Chloride 106 mmol/L (98-107); Glucose 107 mg/dL (74-106); Lipase 161 U/L (73-393); Potassium 4.2 mmol/L (3.5-5.1); Sodium 143 mmol/L (136-145); Total Protein 7.9 g/dL (6.4-8.2)
--- NOTE | 2021-03-15 11:04 | ED.GENADUL_ITS ---
Discharge Plan Disposition Patient Disposition: HOME Condition: Stable Discharge Details Clinical Impression: Abdominal pain, Hernia, hiatal, Liver masses Primary Care Provider: Zeynep Bill ED Provider: Aaron Blair Home Meds and New Rx's Prescriptions: New famotidine [Pepcid] 20 mg tablet 20 mg PO BID Qty: 60 RF: 0 Continued triamcinolone acetonide 0.5 % ointment 1 applic Topical BID PRN (Reason: eczema) Qty: 15 RF: 2 Hold Instructions: Home Medication placed on hold at Doctor's office omeprazole 20 mg capsule,delayed release(DR/EC) 20 mg PO DAILY Qty: 90 RF: 3 Probiotic 15 billion cell capsule See Rx Instructions PO DAILY PRNRF: 0 multivitamin Tablet 1 tab PO DAILY RF: 0 Fish Oil 1 EACH capsule 1 ea PO DAILY RF: 0 lovastatin 10 mg tablet 10 mg PO DAILY Qty: 90 RF: 3 cholecalciferol (vitamin D3) [Vitamin D3] 50 mcg (2,000 unit) capsule 6,000 unit PO DAILY RF: 0 aspirin 81 MG tablet,chewable 1 tab PO DAILY RF: 0 Discharge Instructions Instructions: Hiatal Hernia (ED), Abdominal Pain (ED) Additional Instructions: Use Pepcid 20 mg twice a day and discuss ongoing dosing with your multiple cut off saw operator or general surgeon. Please contact your surgeon to arrange follow-up. Call tomorrow. Please follow-up with your primary care physician. Be sure to discuss incidental findings noted on CT imaging. Additional outpatient diagnostic testing may be necessary. Return to the ER immediately for any worsening or new concerning symptoms. Referrals: Zeynep Bill DO [Primary Care Provider] - Discharge Data Discharge Date/Time-TO BE ENTERED AT DEPARTURE: 03/15/21 14:25 Medical Decision Making 1100 --55-year-old female with multiple medical problems including history of biliary dysfunction, hiatal hernia, GERD, here with severe mid upper abdominal pain since 7 AM this morning. Patient is hemodynamically stable. Bedside [id number] ultrasound was performed by me and gallbladder was visualized, there is no pericholecystic fluid, normal gallbladder wall thickness, no stones visualized. Patient does have a large liver on ultrasound. Patient has no sonographic Luna sign. Plan to check labs including LFTs and lipase to assess for pancreatitis. Consider ulcer and bowel perforation. Plan to obtain CT of the abdomen pelvis to assess for acute surgical pathology patient was offered Dilaudid 1 mg IV and has declined. I will give Pepcid 20 mg IV. --Labs reviewed and nondiagnostic. No leukocytosis, normal LFTs, normal lipase. I obtained and reviewed outside hospital records: Hepatobiliary scan performed 03/11/2021 impression: No evidence of acute cholecystitis or biliary obstruction. Abnormal gallbladder ejection fraction of 32%. --CT of the abdomen pelvis was interpreted by radiology:IMPRESSION: Extensive diverticulosis without evidence of acute diverticulitis. Hepatic steatosis, multiple liver cysts and hiatal hernia incidentally noted. Patient reassessed and notes complete resolution of pain. I suspect hiatal hernia causing intermittent symptoms. I will have her follow-up with surgery as scheduled. All results were discussed with the patient. Abdominal exam benign on reassessment. Disposition decision was made weighing the risks and benefits of hospitalization versus outpatient treatment, the risk for further decompensation, and the patient's wishes. The patient was stable and requested discharge. Prior to discharge, my usual and customary return precautions were reviewed with the patient - this included follow-up instructions and reason to return to the emergency department if condition worsens, does not improve as expected, or other new concerns arise. HPI General Mode of arrival: ambulatory . Date/Time Provider Initiated Documentation: 03/15/21 10:26 . Limitations to Documentation: no limitations . Information obtained by: patient . HPI Narrative: 55-year-old female with multiple medical problems including history of GERD, steatosis of the liver, hepatomegaly, biliary dysfunction, here with chief complaint of abdominal pain. Patient notes pain in mid upper abdomen that started around 7 AM this morning. Pain is sharp. Pain is persisted. Pain is severe currently rated 8/10. No associated nausea or vomiting. Normal bowel movement this morning. Patient states that she typically has intermittent flare of what she thinks is gallbladder pain over the past 6 months to a year. She is being followed for this and had a recent HIDA scan at [facility]. Patient notes pain today seems somewhat different. Related Data Home Medications Medication Instructions Recorded Confirmed aspirin 1 tab PO DAILY 06/20/16 03/15/21 Fish Oil 1 ea PO DAILY 12/08/17 03/15/21 triamcinolone acetonide 0.5 % 1 applic TOPICAL BID PRN #15 g 05/21/20 03/15/21 topical ointment lovastatin 10 mg tablet 10 mg PO DAILY #90 tab 12/31/20 03/15/21 omeprazole 20 mg capsule,delayed 20 mg PO DAILY #90 tab-cap 01/28/21 03/15/21 release Lactobacillus acidophilus and See Rx Instructions PO DAILY PRN 02/24/21 03/15/21 rhamnosus 15 billion cell capsule tab-cap cholecalciferol (vitamin D3) 50 6,000 unit PO DAILY 02/24/21 03/15/21 mcg (2,000 unit) capsule multivitamin 1 tab PO DAILY 02/24/21 03/15/21 famotidine [Pepcid] 20 mg PO BID #60 tab 03/15/21 Previous Rx's Medication Instructions Recorded triamcinolone acetonide 0.5 % 1 applic TOPICAL BID PRN #15 g 05/21/20 topical ointment lovastatin 10 mg tablet 10 mg PO DAILY #90 tab 12/31/20 omeprazole 20 mg capsule,delayed 20 mg PO DAILY #90 tab-cap 01/28/21 release famotidine [Pepcid] 20 mg PO BID #60 tab 03/15/21 Allergies Allergy/AdvReac Type Severity Reaction Status Date / Time Penicillins Allergy Unknown as child Verified 03/15/21 10:31 General Stated Complaint: Abd Prob PETEY: 3 Review of Systems All systems reviewed & are unremarkable except as noted in HPI and below Constitutional Constitutional: Denies fever(s) Gastrointestinal Gastrointestinal: Reports as per HPI [facility] Medical History Anxiety Breast tenderness Pain and tenderness, LEFT, upper/outer (almost a line from axilla toward nipple)(no nodule on exam, but softer/pliable?) ik GERD (gastroesophageal reflux disease) Nighat's thyroiditis 03/08/18 [place] [facility] [place] Pyloric stenosis, congenital Resolved on its own w/o surgery per pt Surgical History History of surgery Bxs from right breast Ligation of fallopian tube (10/04/89) Vaginal hysterectomy (04/28/09) Sparing ovaries, taking out cervix. Dr. García Family History Mother , Lung CA Diabetes Personal history of malignant neoplasm lung ca Sister No problems noted. Sister Hyperlipidemia Grandfather , Enlarged heart Diabetes Maternal Aunt Diabetes Social History Smoking/Tobacco Use Status: Former Tobacco Use Quit Date: 06/06/77 Tobacco: How many years used: 4 Smoking risk assessment performed?: Yes Alcohol Intake: never Drug use: Never Substance use type: does not use Adopted: No Foster care: No Household members: spouse Number of Children: 3 Communication Needs: Corrective Lenses current occupation: [employer] What is your relationship status?: Panel score (0-1 are the most socially isolated patients): 1 What type of physical activity do you participate in: none Frequency: 1-2 times per week [place]/Sabianist: Episcopalian Do you feel safe at home: Yes Do you feel safe in your relationship?: Yes Female Reproductive History Menstrual Age of Menarche: 13 Exam Const General: cooperative and uncomfortable HENMT Mouth: moist mucous membranes Eyes Conjunctivae: normal conjunctivae Sclera: normal sclerae EOM: EOM intact bilaterally Neck Neck: trachea midline and supple Resp Auscultation: clear to auscultation bilaterally, no rales, no rhonchi and no wheezes Cardio Rate: regular rate and not tachycardic Rhythm: regular rhythm GI Palpation: soft, not firm, no guarding, no masses, not rigid and tender in the epigastrum; not in the RUQ Skin General skin exam: no rashes or lesions noted Neuro General: patient alert, patient awake, patient oriented x3 and tone normal Extrem General: no edema Psych Appearance: grossly normal Mental Status: mental status grossly normal Speech and Movement: speech and movement normal Course Vital Signs Vital signs: Vital Signs Temperature 37.0 C 03/15/21 10:27 Pulse 72 03/15/21 10:27 Blood Pressure 129/97 H 03/15/21 10:27 Pulse Oximetry 96 03/15/21 10:27 Temperature 37.0 C 03/15/21 10:27 Temperature Source Temporal Artery Scan 03/15/21 10:27 Pulse 72 03/15/21 10:27 Respiratory Effort Non-Labored 03/15/21 10:30 Blood Pressure 129/97 H 03/15/21 10:27 Blood Pressure Position Sitting 03/15/21 10:27 Pulse Oximetry 96 03/15/21 10:27 Oxygen Delivery Method Room Air 03/15/21 10:27 Oxygen Flow Rate 0 03/15/21 10:27 Pain Level 10 03/15/21 10:27 Lab/Test Results Lab/Test Results: Laboratory Tests Range/Units 03/15/21 03/15/21 10:35 10:35 WBC (4.4-10.8) 10^3/uL 7.94 RBC (3.93-5.22) 10^6/uL 5.18 Hgb (11.2-15.7) g/dL 14.8 Hct (36.0-46.0) % 45.9 MCV (80-95) fL 88.6 MCH (27.0-33.0) pg 28.6 MCHC (32.0-36.0) % 32.2 RDW (11.7-14.6) % 12.2 Plt Count (130-400) 10^3/uL 222 MPV (8.0-11.0) fL 10.8 Immature Gran % 0.3 Neutrophils % 69.8 Lymphocytes % 20.8 Monocytes % 7.8 Eosinophils % 0.8 Basophils % 0.5 Nucleated RBC % % 0 Absolute Neutrophils (1.2-6.7) 10^3/uL 5.55 Absolute Lymphocytes (1.2-3.4) 10^3/uL 1.65 Absolute Monocytes (0.1-0.8) 10^3/uL 0.62 Absolute Eosinophils (0.0-0.7) 10^3/uL 0.06 Absolute Basophils (0.0-0.2) 10^3/uL 0.04 Sodium (136-145) mmol/L 143 Potassium (3.5-5.1) mmol/L 4.2 Chloride (98-107) mmol/L 106 Carbon Dioxide (21.0-32.0) mmol/L 31.7 Anion Gap (3-11) mmol/L 5.3 BUN (7-18) mg/dL 13 Creatinine (0.55-1.02) mg/dL 0.8 Estimated GFR/1.73 m2 (mL/min/1.73m2) >= 60.00 Glucose (74-106) mg/dL 107 H Calcium (8.5-10.1) mg/dL 9.2 Total Bilirubin (0.2-1.0) mg/dL 1.0 AST (15-37) U/L 14 L ALT (14-59) U/L 32 Alkaline Phosphatase (46-116) U/L 108 Total Protein (6.4-8.2) g/dL 7.9 Albumin (3.4-5.0) g/dL 4.2 Lipase (73-393) U/L 161
[2021-03-15 11:10] LABS: Calcium 9.4 mg/dL (8.5-10.1)
[2021-03-15 11:13] LABS: Bilirubin Negative (Negative); Blood Trace-lysed (Negative); Clarity Clear (Clear); Glucose Negative (Negative); Ketones Negative (Negative); Leukocyte Esterase Negative (Negative); Nitrite Negative (Negative); Specific Gravity >= 1.030 (1.005-1.025); Urobilinogen 0.2 EU/dL (Up TO 0.2); pH 5.5 (5-8)
[2021-03-15 11:20] LABS: Bacteria Rare HPF (Negative); C & S Indicated? No; Casts Negative LPF (Negative); Crystals Negative HPF (Negative); Epithelial Cells Few HPF (Negative); Mucus Negative (Negative); WBC 0-2 HPF (0-5)
[2021-03-15 11:59] LABS: Source Nasal/Nares
[2021-03-15] MEDS: Lactated Ringers 1,000 ML 125 ML IV (12:22)
--- NOTE | 2021-03-15 12:28 | DI.CT_ITS ---
Exam(s) CT ABDOMEN PELVIS W EXAM: CT ABDOMEN PELVIS W CLINICAL HISTORY: mid upper abd pain. TECHNIQUE: Imaging Protocol: Axial computed tomography images with coronal and sagittal reformatted images were created and reviewed CONTRAST MATERIAL: Intravenous: Omnipaque 100cc Oral: None COMPARISON: CT CHEST ABD WITH CONTRAST from 02/10/2016 FINDINGS: VISUALIZED LUNG BASES: There is a 6 millimeter nodule in the lateral basal segment of the right lower lobe which is unchanged from 2016 and therefore benign. Also nodular density in the anterior basal segment of the left lower lobe which is also most probably benign exhibiting minimal change from 2016 .. There are no pleural effusions. ABDOMEN: There is a prominent retrocardiac hiatal hernia, larger than previous There is no ascites. LIVER: There are multiple cysts in the liver, more numerous in the right hepatic lobe. There is a si ngle cyst in left hepatic lobe. All of these cysts of slightly increased in size from 2016. The lar gest is again noted to be inferiorly in the right hepatic lobe and measures 2.8 cm x 2.1 cm, but stil l appears cystic. GALLBLADDER/BILIARY: No obvious gallbladder pathology. CBD is not dilated. PANCREAS: No evidence of pancreatic mass nor dilatation of the pancreatic duct. SPLEEN: Spleen is not enlarged. No obvious intrasplenic lesions. Splenic and portal veins are paten t. ADRENALS: There is a small 8 x 9 millimeter nodule in the right adrenal gland, unchanged from previou s and probably a small adenoma. Left adrenal gland remains unremarkable. KIDNEYS:No cysts evident. No solid renal masses. No calculi nor hydronephrosis.. ABDOMINAL AORTA: Abdominal aorta is not enlarged. LYMPH NODES:There is no retroperitoneal nor paraaortic adenopathy. ABDOMINAL WALL: There is a left inguinal hernia which contains fat and no bowel loops. GI: There is no evidence of bowel obstruction, free air, nor abscess. PELVIS: GI: No evidence of appendicitis.Sigmoid diverticulosis. There appears to be some edema of the lower sigmoid wall, probably an element of diverticulitis. No perforation. No abscess. No free air. No free fluid. LYMPH NODES: There is no intrapelvic nor inguinal adenopathy. REPRODUCTIVE: Uterus is surgically absent. Left ovary is identified appears unremarkable. Right ova ry is difficult to identify from adjacent non-opacified bowel loops in the pelvis. URINARY BLADDER: No calculi nor obvious masses evident OSSEOUS: No significant osseous lesions. IMPRESSION: 1. Moderate-large size hiatal hernia which has increased in size from 2016. 2. Lung base findings as above which are unchanged from 2016 and therefore benign. There are no pleu ral effusions. 3. Multiple cysts in the liver which have increased in size from 2016 but still remain benign appeara nce. 4. Stable 8-9 millimeter right adrenal nodule, unchanged from 2016 and therefore probably a benign ad enoma. 5. Sigmoid diverticulosis. Possible subtle diverticulitis in the sigmoid. No free air. No abscess . 6. No evidence of appendicitis. Uterus is again noted to be surgically absent. There are no abnormal adnexal masses. RADIATION DOSE DELIVERED: 1,385.55mGy.cm Total DLP DATA REPOSITORY: All CT scans at this facility are submitted to the National Radiology Data Registry (NRDR) Dose Index Registry (DIR) with the [employer] (ACR). RADIATION OPTIMIZATION: All CT scans at this facility use at least one of these dose optimization te chniques: automated exposure control; mA and/or kV adjustment per patient size (includes targeted exa ms where dose is matched to clinical indication); or iterative reconstruction.
[2021-03-15] MEDS: Omnipaque 350 MG/ML 100 ML BTL IJ (12:29)
[2021-03-15] MEDS: Normal Saline - Diluent 50 ML VIAL IV (12:29)
--- NOTE | 2021-03-15 13:09 | DI.VRAD_ITS ---
PROCEDURE INFORMATION: Exam: CT Abdomen And Pelvis With Contrast Exam date and time: 03/15/2021 11:01 AM Age: 55 years old Clinical indication: Abdominal pain; Generalized; Patient HX: Abd pain - mid. This am. No recent surgeries TECHNIQUE: Imaging protocol: Computed tomography of the abdomen and pelvis with contrast. Radiation optimization: All CT scans at this facility use at least one of these dose optimization techniques: automated exposure control; mA and/or kV adjustment per patient size (includes targeted exams where dose is matched to clinical indication); or iterative reconstruction. Contrast material: OMNI 350; Contrast volume: 100 ml; Contrast route: INTRAVENOUS (IV); COMPARISON: CT CHEST ABD WITH CONTRAST 11/13/2015 08:16 FINDINGS: Lungs: Visualized lung bases are clear. There is a large paraesophageal hiatal hernia containing much of the stomach. Liver: Liver shows mild fatty infiltration. There are multiple low-attenuation nodules probably representing cysts. Gallbladder and bile ducts: Normal. No calcified stones. No ductal dilation. Pancreas: Normal. No mass or ductal dilation. Spleen: Normal. No splenomegaly. Adrenal glands: Normal. No mass. Kidneys and ureters: Normal. No hydronephrosis, calculus, cyst or mass. Stomach and bowel: There is hiatal hernia as noted above. Small bowel loops throughout the abdomen appear normal. There is extensive diverticulosis throughout the colon but no definite wall thickening or acute inflammatory changes are seen. Appendix: No evidence of appendicitis. Intraperitoneal space: Unremarkable. No free air. No significant fluid collection. Vasculature: Unremarkable. No abdominal aortic aneurysm or significant atherosclerosis. Lymph nodes: No enlarged retroperitoneal or mesenteric lymph nodes. Urinary bladder: No mass or wall thickening. Reproductive: Previous hysterectomy. Bones/joints: Unremarkable. No acute fracture. No lytic lesion. Soft tissues: Unremarkable. IMPRESSION: Extensive diverticulosis without evidence of acute diverticulitis. Hepatic steatosis, multiple liver cysts and hiatal hernia incidentally noted. Dictated and Authenticated by: Aden Khan MD. Ordering:SHEILA Walker MD
[2021-03-15 23:59] LABS: COVID-19 PCR Negative (Negative)
--- NOTE | 2021-03-16 08:30 | NUR.NOTE ---
spoke to Celeste-informed that covid test was negative.Nursing Note:
== END 2021-03-15 14:25 | disposition home or self-care (01) ==
PROVIDERS: Emergency Provider Student in an Organized Health Care Education/Training Program; PCP Student in an Organized Health Care Education/Training Program
DX: K44.9 Diaphragmatic hernia without obstruction or gangrene (principal); K76.89 Other specified diseases of liver; R10.11 Right upper quadrant pain; R10.12 Left upper quadrant pain
CPT/HCPCS: 36415; 80053; 83690; 87635; 99285; 74177; 81003; 81015; 85025; 99284; J3490

== ENCOUNTER 2021-03-18 04:12 | Outpatient (CLI) | payer BC, SELFPAY ==
[2021-03-18 07:27] LABS: HGB 14.3 g/dL (11.2-15.7); MCH 28.5 pg (27.0-33.0); MCHC 32.5 % (32.0-36.0); MCV 87.6 fL (80-95); MPV 11.2 fL (8.0-11.0); Platelet Count 214 10^3/uL (130-400); RBC 5.02 10^6/uL (3.93-5.22); RDW 12.2 % (11.7-14.6); RDW-SD 39.4 fL; WBC 5.15 10^3/uL (4.4-10.8)
[2021-03-18 08:54] LABS: ALT 36 U/L (14-59); AST 16 U/L (15-37); Alkaline Phosphatase 92 U/L (46-116); Anion Gap 7.1 mmol/L (3-11); BUN 11 mg/dL (7-18); Bilirubin, Total 1.2 mg/dL (0.2-1.0); CO2 30.9 mmol/L (21.0-32.0); CREATININE 0.8 mg/dL (0.55-1.02); Calcium 9.1 mg/dL (8.5-10.1); Chloride 103 mmol/L (98-107); Glucose 105 mg/dL (74-106); Potassium 4.1 mmol/L (3.5-5.1); Sodium 141 mmol/L (136-145); TSH (W/Ref FT4) 3.11 uIU/mL (0.36-3.74); Total Protein 7.1 g/dL (6.4-8.2)
[2021-03-18 16:23] LABS: T3,Free 3.3 pg/mL (2.8-5.3)
== END 2021-03-18 04:13 | disposition home or self-care (01) ==
LOC: LBO 04:12
PROVIDERS: PCP Student in an Organized Health Care Education/Training Program; Visit Provider Student in an Organized Health Care Education/Training Program
DX: R53.83 Other fatigue; E06.3 Autoimmune thyroiditis; E04.2 Nontoxic multinodular goiter; K21.00 Gastro-esophageal reflux disease with esophagitis, without bleeding; K76.0 Fatty (change of) liver, not elsewhere classified; K58.9 Irritable bowel syndrome, unspecified; R16.0 Hepatomegaly, not elsewhere classified; G47.33 Obstructive sleep apnea (adult) (pediatric); R10.13 Epigastric pain; R73.01 Impaired fasting glucose
CPT/HCPCS: 36415; 80053; 85027; 84443; 84481

== ENCOUNTER 2021-03-23 13:09 | Outpatient (CLI) | payer BC, SELFPAY ==
[2021-03-23 12:46] LABS: Abs Immature Grans 0.01 10^3/uL (0.0-0.06); Absolute Basophil Count 0.03 10^3/uL (0.0-0.2); Absolute Eosinophil Count 0.09 10^3/uL (0.0-0.7); Absolute Lymphocyte Count 1.43 10^3/uL (1.2-3.4); Absolute Neutrophil Count 5.42 10^3/uL (1.2-6.7); Basophils % 0.4; Eosinophils % 1.2; HCT 41.8 % (36.0-46.0); HGB 13.6 g/dL (11.2-15.7); Immature Grans % 0.1; Lymphocytes % 19.1; MCH 28.6 pg (27.0-33.0); MCHC 32.5 % (32.0-36.0); MCV 87.8 fL (80-95); MPV 10.8 fL (8.0-11.0); Monocytes % 6.7; Neutrophils % 72.5; Nucleated RBC 0 %; Platelet Count 188 10^3/uL (130-400); RBC 4.76 10^6/uL (3.93-5.22); RDW 12.1 % (11.7-14.6); RDW-SD 39.6 fL; WBC 7.48 10^3/uL (4.4-10.8)
== END 2021-03-23 13:10 | disposition home or self-care (01) ==
LOC: LBO 13:10
PROVIDERS: PCP Student in an Organized Health Care Education/Training Program; Visit Provider Student in an Organized Health Care Education/Training Program
DX: K57.32 Diverticulitis of large intestine without perforation or abscess without bleeding (principal); R10.9 Unspecified abdominal pain
CPT/HCPCS: 36415; 85025

== ENCOUNTER → 2021-09-14 01:24 | Outpatient (CLI) | payer BC, SELFPAY ==
--- NOTE | 2021-09-14 10:35 | DI.MAMMO_ITS ---
Exam(s) MAMMO SCREENING EXAM: MAMMO SCREENING CLINICAL HISTORY: SCREENING, Z12.31 TECHNIQUE: Mammograms were interpreted according to the usual protocol including computer analysis w Taplet CAD system, tomosynthesis and C-view imaging. COMPARISON: 2014 through 2020 FINDINGS: The breasts are composed of scattered fibroglandular densities, Breast Density category B. Two biopsy clips are again noted in the right breast. There are stable areas of nodularity. No susp icious masses or suspicious microcalcifications are seen. No skin thickening or abnormal axillary lymph nodes are seen. There has been no significant change from prior exams. IMPRESSION: BI-RADS Cat 2 - Benign Findings Yearly screening mammography is recommended. Breast Density - Category B, scattered fibroglandular densities. A negative radiographic report should not delay biopsy if a dominant or clinically suspicious mass is present. Up to ten percent of cancers are not identified on mammography. A negative report may reinforce clinical impression. Adenosis and dense breasts may obscure an underlying neoplasm. False positive reports average 6 to 10%. Patient will receive a letter notifying them of these results.
== END ==
PROVIDERS: PCP Student in an Organized Health Care Education/Training Program; Visit Provider Nurse Practitioner Women's Health
DX: Z12.31 Encounter for screening mammogram for malignant neoplasm of breast (principal)
CPT/HCPCS: 77063; 77067

== ENCOUNTER 2021-09-28 05:01 | Outpatient (CLI) | payer BC, SELFPAY ==
[2021-09-28 08:57] LABS: ALT 27 U/L (14-59); AST 15 U/L (15-37); Albumin 3.7 g/dL (3.4-5.0); Alkaline Phosphatase 108 U/L (46-116); Anion Gap 5.1 mmol/L (3-11); BUN 13 mg/dL (7-18); Bilirubin, Total 0.7 mg/dL (0.2-1.0); CO2 30.9 mmol/L (21.0-32.0); CREATININE 0.7 mg/dL (0.55-1.02); Calcium 8.8 mg/dL (8.5-10.1); Calculated LDL 103 mg/dL (<100); Chloride 106 mmol/L (98-107); Cholesterol 190 mg/dL (<200); Glucose 102 mg/dL (74-106); HDL Cholesterol 55 mg/dL (40-60); Sodium 142 mmol/L (136-145); TSH (W/Ref FT4) 2.52 uIU/mL (0.36-3.74); Total Protein 6.7 g/dL (6.4-8.2); Triglyceride 163 mg/dL (<150)
== END 2021-09-28 05:02 | disposition home or self-care (01) ==
LOC: LBO 05:01
PROVIDERS: PCP Student in an Organized Health Care Education/Training Program; Referring Provider Student in an Organized Health Care Education/Training Program; Visit Provider Student in an Organized Health Care Education/Training Program
DX: K21.00 Gastro-esophageal reflux disease with esophagitis, without bleeding (principal); K76.9 Liver disease, unspecified; Z13.220 Encounter for screening for lipoid disorders; E06.3 Autoimmune thyroiditis
CPT/HCPCS: 36415; 80053; 80061; 84443

== ENCOUNTER 2022-09-09 03:11 | Outpatient (CLI) | payer BC, SELFPAY ==
[2022-09-09 08:27] LABS: ALT 38 U/L (14-59); AST 17 U/L (15-37); Albumin 3.9 g/dL (3.4-5.0); Alkaline Phosphatase 95 U/L (46-116); Anion Gap 5.7 mmol/L (3-11); BUN 14 mg/dL (7-18); Bilirubin, Direct 0.2 mg/dL (0.0-0.2); Bilirubin, Total 0.8 mg/dL (0.2-1.0); CO2 30.3 mmol/L (21.0-32.0); CREATININE 0.8 mg/dL (0.55-1.02); Calcium 9.2 mg/dL (8.5-10.1); Chloride 104 mmol/L (98-107); Estimated GFR 85.89 (mL/min/1.73m2); Glucose 103 mg/dL (74-106); Potassium 4.3 mmol/L (3.5-5.1); Sodium 140 mmol/L (136-145); Total Protein 7.4 g/dL (6.4-8.2)
== END 2022-09-09 03:12 | disposition home or self-care (01) ==
LOC: LBO 03:12
PROVIDERS: PCP Student in an Organized Health Care Education/Training Program; Visit Provider Student in an Organized Health Care Education/Training Program
DX: K76.89 Other specified diseases of liver (principal); R16.0 Hepatomegaly, not elsewhere classified; E87.8 Other disorders of electrolyte and fluid balance, not elsewhere classified; K58.9 Irritable bowel syndrome, unspecified
CPT/HCPCS: 36415; 80048; 80076

== ENCOUNTER 2022-09-15 01:31 | Outpatient (CLI) | payer BC, SELFPAY ==
--- NOTE | 2022-09-15 08:00 | DI.MAMMO_ITS ---
Exam(s) MAMMO SCREENING EXAM: MAMMO SCREENING CLINICAL HISTORY: screeninG,Z12.39. TECHNIQUE: Bilateral full field digital CC and MLO mammographic images were obtained with 3D tomosyn thesis and utilizing computer aided detection (CAD). COMPARISON: Prior mammograms dating back to 2014 were reviewed. FINDINGS: There has been no significant change in the appearance and distribution of the fibroglandular tissue. Lobulated nodular density in right breast is unchanged 1999. Therefore benign. There is also a 2nd nodular density slightly lateral of center in the right breast located 9 cm in fr om the nipple on the CC 3D view and measuring 1.4 x 0.8 cm, also unchanged from prior mammograms dati ng back to 2014 and therefore benign. There is a tiny metallic density again noted adjacent to this finding, unchanged. There are no new findings in the vicinity 2 biopsy marker clips in the right breast. There are no new spiculated masses nor malignant appearing microcalcification groups in either breast . There is no significant architectural distortion nor skin thickening-retraction. IMPRESSION: 1. No radiographic evidence of malignancy in left breast. 2. Stable benign-appearing right breast nodules, unchanged from 2015. 3. No new significant findings in the vicinity a biopsy marker clips in the right breast. BI-RADS Category 2 - Benign Findings Breast Density - Category B - Scattered areas of fibroglandular density Breast density Category C or D implies that the patient has dense breast tissue. Dense breast tissue can make it harder to find cancer on a mammogram. Dense breast tissue is also associated with an incr eased risk of breast cancer. This information about the result of the mammogram report was provided to the patient to raise their awareness. Use this report when you speak with the patient about their risks for breast cancer, which includes their family history. At that time, you may recommend additional screening tests (Ultrasoun d or MRI) as these tests may add significant information. A negative radiographic report should not delay biopsy if a dominant or clinically suspicious mass is present. Up to ten percent of cancers are not identified on mammography. A negative report may reinforce clinical impression. Adenosis and dense breasts may obscure an underlying neoplasm. False positive reports average 6 to 10%. Patient will receive a letter notifying them of these results.
== END 2022-09-15 01:51 ==
LOC: DI 01:32
PROVIDERS: PCP Student in an Organized Health Care Education/Training Program; Visit Provider Student in an Organized Health Care Education/Training Program
DX: Z12.31 Encounter for screening mammogram for malignant neoplasm of breast (principal)
CPT/HCPCS: 77063; 77067

== ENCOUNTER 2022-11-26 12:15 | Outpatient (CLI) | payer BC, SELFPAY ==
--- NOTE | 2022-11-30 12:55 | RT.PO.N_ITS ---
Date of service: 11/28/22 Time of Service: 21:37 Nocturnal Oximetry Note: Overnight Oximetry Amount of time analyzed: 6 hours 53 minutes on room air Number of minutes under 88%: 39.9 RODOLFO: 22.1 Appearance of oxygen saturation pattern: Sharp decreases and increases consist ent with obstructive sleep apnea Recommendation: Recommend sleep study Lucinda Vernon MD Pulmonary & Critical Care Medicine
--- NOTE | 2022-11-30 12:58 | W.NOCTURNAL ---
Date of service: 11/26/22 Time of Service: 21:35 Nocturnal Oximetry Note: Overnight Oximetry Amount of time analyzed: 6 hours 55 minutes, on room air Number of minutes under 88%: 10.1 RODOLFO:10.2 Appearance of oxygen saturation pattern:Sharp decreases and increases consistent with obstructive sleep apnea Recommendation: sleep study or application of 2LPM and repeat nocturnal oximetry Lucinda Vernon MD [facility]monary [facility] Medicine
== END 2022-11-26 12:16 | disposition home or self-care (01) ==
PROVIDERS: PCP Student in an Organized Health Care Education/Training Program; Visit Provider Student in an Organized Health Care Education/Training Program
DX: R51.9 Headache, unspecified (principal); G47.33 Obstructive sleep apnea (adult) (pediatric)
CPT/HCPCS: 94762

== ENCOUNTER 2022-12-17 02:15 | Outpatient (CLI) | payer BC, SELFPAY ==
[2022-12-17 07:12] LABS: HCT 44.9 % (36.0-46.0); HGB 14.7 g/dL (11.2-15.7); MCH 29.1 pg (27.0-33.0); MCHC 32.7 % (32.0-36.0); MCV 89 fL (80-95); MPV 10.8 fL (8.0-11.0); Platelet Count 198 10^3/uL (130-400); RBC 5.06 10^6/uL (3.93-5.22); RDW 12.1 % (11.7-14.6); RDW-SD 39.5 fL; WBC 4.59 10^3/uL (4.4-10.8)
[2022-12-17 08:20] LABS: Vitamin D 25 Total 31.4 ng/mL (30-100)
[2022-12-17 08:23] LABS: ALT 31 U/L (14-59); AST 19 U/L (15-37); Alkaline Phosphatase 85 U/L (46-116); Anion Gap 7.8 mmol/L (3-11); BUN 11 mg/dL (7-18); Bilirubin, Direct 0.3 mg/dL (0.0-0.2); Bilirubin, Total 1.3 mg/dL (0.2-1.0); CO2 29.2 mmol/L (21.0-32.0); CREATININE 0.8 mg/dL (0.55-1.02); Calcium 9.1 mg/dL (8.5-10.1); Calculated LDL 113 mg/dL (<100); Chloride 105 mmol/L (98-107); Cholesterol 192 mg/dL (<200); Estimated GFR 85.35 (mL/min/1.73m2); Glucose 108 mg/dL (74-106); HDL Cholesterol 64 mg/dL (40-60); Potassium 4.5 mmol/L (3.5-5.1); Sodium 142 mmol/L (136-145); TSH (W/Ref FT4) 2.85 uIU/mL (0.36-3.74); Total Protein 7.5 g/dL (6.4-8.2); Triglyceride 77 mg/dL (<150); Vitamin B12 714 pg/mL (193-986)
[2022-12-17 08:24] LABS: Folate > 20.0 ng/mL (8.6-20.0)
[2022-12-17 19:23] LABS: T3,Free 3.7 pg/mL (2.8-5.3)
[2022-12-21 09:18] LABS: Lab Add On Test DONE
[2022-12-21 09:43] LABS: FREE T4 1.16 ng/dL (0.76-1.46)
[2022-12-21 17:11] LABS: Hemoglobin A1C 5.9 % (<5.7)
== END 2022-12-17 02:16 | disposition home or self-care (01) ==
LOC: LBO 02:16
PROVIDERS: PCP Student in an Organized Health Care Education/Training Program; Visit Provider Student in an Organized Health Care Education/Training Program
DX: E04.2 Nontoxic multinodular goiter (principal); E06.3 Autoimmune thyroiditis; K21.00 Gastro-esophageal reflux disease with esophagitis, without bleeding; K76.89 Other specified diseases of liver; R73.09 Other abnormal glucose; R79.89 Other specified abnormal findings of blood chemistry; E46 Unspecified protein-calorie malnutrition; E55.9 Vitamin D deficiency, unspecified; E86.0 Dehydration; R16.0 Hepatomegaly, not elsewhere classified; N95.1 Menopausal and female climacteric states; K57.90 Diverticulosis of intestine, part unspecified, without perforation or abscess without bleeding
CPT/HCPCS: 36415; 80048; 80061; 80076; 82306; 85027; 82607; 82746; 83036; 84439; 84443; 84481

== ENCOUNTER 2023-03-05 07:20 | Emergency (ER) | payer BC, SELFPAY ==
[2023-03-05 07:26] VITALS: PULSE 90; RESP 20; TEMP 36.6; O2SAT 97
--- NOTE | 2023-03-05 08:00 | DI.RAD_ITS ---
Exam(s) XR CHEST 2V PA LATERAL EXAM: XR CHEST 2V PA LATERAL CLINICAL HISTORY: productive cough x 3 weeks. TECHNIQUE: 2D digital imaging was performed. COMPARISON: CR,XR XR CHEST 2V PA LATERAL from 06/29/[address] CHEST WO from 01/26/2023 FINDINGS: 2 views: Heart size is normal. The mediastinum is not widened. Lungs are clear. No infiltrates nor pleural effusions. Previously present hiatal hernia is no longer seen. IMPRESSION: No acute pulmonary findings. DATA REPOSITORY: RADIATION DOSE DELIVERED:
--- NOTE | 2023-03-05 08:08 | W.ED.GENAD ---
Discharge Plan Disposition Patient Disposition: Home Condition: Improving Discharge Details Chief Complaint: RespSymp Clinical Impression: Cough Primary Care Provider: Zeynep Bill ED Provider: Guru Hood Home Meds and New Rx's Prescriptions: No Action cholecalciferol (vitamin D3) 250 mcg (10,000 unit) capsule 250 mcg PO QWEEK Qty: 10 0RF Rx Instructions: Take weekly, then we will start daily @ lower dose (re-check 16 weeks) multivitamin Tablet 1 tab PO DAILY triamcinolone acetonide 0.5 % ointment 1 applic Topical BID PRN (Reason: eczema) Qty: 80 2RF Hold Instructions: Home Medication placed on hold at Doctor's office Rx Instructions: 4 FTU for scalp, nasal, ear patches BID x 2 week intervals over winter lovastatin 10 mg tablet 10 mg PO DAILY Qty: 90 3RF Rx Instructions: Please substitute per insurance coverage. Generic ok. cholecalciferol (vitamin D3) [Vitamin D3] 50 mcg (2,000 unit) capsule 6,000 unit PO DAILY Rx Instructions: Takes in Multivitamin. estradiol 0.01 % (0.1 mg/gram) cream 1 g vaginal .2xwk Rx Instructions: per note dated 04/01/21 cgc aspirin 81 MG tablet,chewable 1 tab PO DAILY Discharge Instructions Instructions: Acute Cough (ED) Additional Instructions: Please follow-up with your primary care physician. Please return to the emergency department for any worsening Medical Decision Making 57-year-old female presents with cough over the last 3 weeks productive over the last several days, no fevers chills nausea vomiting or other systemic signs of illness, no recent travel no recent hospitalization. Patient afebrile nontoxic no respiratory distress lungs clear bilaterally saturating 97% on room air. Consider viral URI versus allergic symptomatology versus bacterial pneumonia lower suspicion for ACS PE malignancy effusion pneumothorax or aortic pathology. Trial of nebs and steroids. Screening x-ray. Close reassessment of symptoms. Likely home with close follow-up pending x-ray result 9: 27 patient resting comfortably no acute distress feeling better after nebs. No evidence of pneumonia on x-ray. Home care instructions and return precautions HPI General Date/Time Provider Initiated Documentation: 03/05/23 08:01. HPI Narrative: 57-year-old female presents with 3 weeks of cough now productive. Denies fevers chills nausea vomiting or other systemic signs of illness. No recent travel no recent hospitalization. No history of COPD or asthma Related Data Home Medications Medication Instructions Recorded Confirmed aspirin 81 mg chewable tablet 1 tab PO DAILY 06/20/16 03/05/23 cholecalciferol (vitamin D3) 50 6,000 unit PO DAILY 02/24/21 03/05/23 mcg (2,000 unit) capsule (Vitamin D3) multivitamin 1 tab PO DAILY 02/24/21 03/05/23 estradiol 0.01% (0.1 mg/gram) 1 g vaginal .2xwk 04/02/21 03/05/23 vaginal cream lovastatin 10 mg tablet 10 mg PO DAILY #90 tabs 06/15/22 03/05/23 triamcinolone acetonide 0.5 % 1 applic topical BID PRN eczema 06/15/22 03/05/23 topical ointment #80 grams cholecalciferol (vitamin D3) 250 250 mcg PO QWEEK #10 caps 12/21/22 03/05/23 mcg (10,000 unit) capsule Previous Rx's Medication Instructions Recorded lovastatin 10 mg tablet 10 mg PO DAILY #90 tabs 06/15/22 triamcinolone acetonide 0.5 % 1 applic topical BID PRN eczema 06/15/22 topical ointment #80 grams cholecalciferol (vitamin D3) 250 250 mcg PO QWEEK #10 caps 12/21/22 mcg (10,000 unit) capsule Allergies Allergy/AdvReac Type Severity Reaction Status Date / Time Penicillins Allergy Unknown as child Verified 12/21/22 15:45 General Stated Complaint: RespSymp PETEY: 3 Review of Systems Narrative: Review of Systems Constitutional: negative Eyes: negative ENT: negative Cardiovascular: negative Respiratory: Cough Gastrointestinal: negative : negative Musculoskeletal: negative Skin: negative Neurologic: negative Psych: negative PFSH All Active Problems (Updated 03/05/23 @ 09:28 by Guru Hood MD) Cough (Acute) Skin lesion of scalp (Acute) Small, nonhealing right bottom hairline probable excoriation but following because of nonhealing.. Hypovitaminosis D (Acute) Morning headache (Acute) Perimenopausal (Acute) Mid, per [facility] testing (2019) .. Rectocele (Acute) Cystocele, midline (Acute) 1-2nd degree Hepatomegaly (Acute ~09/12/20) Abdominal Ultrasound consistent with hepatic steatosis. A few hepatic cysts noted. Steatosis of liver (Acute 02/02/16) Hepatic cyst (Acute 02/10/16) Hepatic Cysts, no follow up needed per RAD ([facility] on [place])(fluid pockets).Described in CT as hypodensity .. NOT a mass. ik, 12/2019 Liver masses (Acute 02/02/16) Hepatic Cysts, no follow up needed per RAD ([facility] on [place])(fluid pockets).Described in CT as hypodensity .. NOT a mass. Anxiety (Chronic) Supportive work environment has helped day to day anxiety. Eczema (Acute 07/14/15) Episodic use or triamcinalone; well-aware of 7-10 day max (holiday) Impaired fasting glucose (Acute 05/09/15) Lung nodule (Acute 02/02/16) 6 mo f/u 08/10/2016: stable 03/2017. Recheck [ ] 6mm, RLL. Mild obstructive sleep apnea (Acute 08/15/17) rx for auto cpap 6-16 cm sent to [facility] per sleep study note dated 08/15/17. Schatzki's ring (Acute 11/17/15) EGD 11/10/2015 Nighat's thyroiditis (Acute) 03/08/18 Endo [facility] Multinodular goiter (Acute ~01/2018) ID on U/S, 01/27/18 (..multi-nodular goiter. No dominant mass identified). Endo referral made. IBS (irritable bowel syndrome) (Chronic) Probable Dx, based on bloating, easily constipated, reflux, gas pains .. Medical History (Updated 03/05/23 @ 09:28 by Guru Hood MD) Bilateral plantar fasciitis (03/10/21) appreciated Weeks Pod Breast tenderness Pain and tenderness, LEFT, upper/outer (almost a line from axilla toward nipple)(no nodule on exam, but softer/pliable?) ik Diverticulosis Dyskinesia of gallbladder (PROBABLY THE PARAESOPH HIATAL HERNIA! )Per [facility] Gastroenterology note from 02/17/21, F/U 03/12/[address] Cespedes, Surgeon for gallbladder, epigastirc RUQ pain Epigastric abdominal pain Probably the paraesophageal, hiatal hernia (sliding); repaired 08/2021 Fibroadenoma of right breast in female (07/14/15) Gastroesophageal reflux disease with esophagitis (11/17/15) Post severe hiatal hernia REPAIR (Dr. Gutierrez)([facility]). EGD 11/10/2015 .. 06/23/21: Consideration of paraesophageal hernia and fundoplication ([facility]). GERD (gastroesophageal reflux disease) Hiatal hernia (11/17/15) 08/06/21 Lap paraesogheal hernia repair at [facility] w/fundoplasty EGD 11/10/2015 Periodic heart flutter (06/2018) Continuing heart flutter, especially worrisome with new thyroiditis, auto-immun Dx. Holtor NEG, but showing 6 PVS, 198 PACs. WIll meet with cardio to review, 08/21/18 [ ] Perioral dermatitis Pyloric stenosis, congenital Resolved on its own w/o surgery per pt Surgical History H/O esophageal hernia repair 08/05/21 done laparoscopically [facility] General Surgery History of repair of hiatal hernia 08/2021: PARAesophageal hernia and fundoplication ([facility]). History of surgery Bxs from right breast Ligation of fallopian tube (10/04/89) Vaginal hysterectomy (04/28/09) Sparing ovaries, taking out cervix. Dr. García Family History Mother , Lung CA Diabetes Personal history of malignant neoplasm lung ca Sister No problems noted. Sister Hyperlipidemia Grandfather , Enlarged heart Diabetes Maternal Aunt Diabetes Social History (Updated 11/26/22 @ 11:24 by Geeta Hancock RN) Smoking/Tobacco Use Status: Former Tobacco Use Quit Date: 06/06/77 Tobacco: How many years used: 4 Smoking risk assessment performed?: Yes Alcohol Intake: never Drug use: Never Substance use type: does not use Adopted: No Caregiver/Support person: No Foster care: No Household members: spouse Number of Children: 3 number of grandchildren: 6 Communication Needs: Corrective Lenses Education Level: high school Do you need help understanding health information?: Rarely current occupation: [employer] Pets and animals: Yes (1) Pets and animals: dog(s) Sexually active: Yes Do you think of yourself as: straight/heterosexual Current gender identity: female What is your relationship status?: How often do you talk on the phone with friends or family?: three or more times per week How often do you get together with friends or relatives?: three or more times per week Do you belong to any clubs or organized social groups?: no Panel score (0-1 are the most socially isolated patients): 2 What type of physical activity do you participate in: none Duration: 15-30 minutes/day Frequency: 3-4 times per week [place]/Congregational: Episcopal Special carolina needs: No Seatbelt use: always Helmet use: No 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 Do you feel safe at home: Yes Do you feel safe in your relationship?: Yes Female Reproductive History Menstrual Age of Menarche: 13 Exam Narrative Exam Narrative: Physical Examination General: alert, awake, cooperative, resting comfortably, no acute distress HEENT: normocephalic, atraumatic; PERRL, EOM intact, conjunctiva normal; no nasal discharge; moist mucous membranes, oral and pharyngeal mucosa normal, tolerating secretions Neck: supple, trachea midline; full ROM Chest: normal to inspection Respiratory: normal respiratory effort, speaking in full sentences, clear to auscultation, no wheezing, rales or rhonchi Cardiac: regular rate, regular rhythm, S1S2 intact, no murmurs rubs or gallops GI: abdomen soft, non-tender, non-distended; no palpable mass or hepatosplenomegaly Skin: no lesions, rashes or trauma appreciated Neuro: AAOx3, normal speech, moving all extremities Psych: Appropriate mood and affect Course Vital Signs Vital signs: Vital Signs Temperature 36.6 C 03/05/23 07:26 Pulse 90 03/05/23 07:26 Respiratory Rate 20 03/05/23 07:26 Pulse Oximetry 97 03/05/23 07:26 Temperature 36.6 C 03/05/23 07:26 Temperature Source Oral 03/05/23 07:26 Pulse 90 03/05/23 07:26 Respiratory Rate 20 03/05/23 07:26 Respiratory Effort Normal, Non-Labored 03/05/23 07:38 Pulse Oximetry 97 03/05/23 07:26 Oxygen Delivery Method Room Air 03/05/23 07:26 Oxygen Flow Rate 0 03/05/23 07:26
--- NOTE | 2023-03-05 08:38 | DI.VRAD_ITS ---
PROCEDURE INFORMATION: Exam: XR Chest Exam date and time: 03/05/2023 8:19 AM Age: 57 years old Clinical indication: Patient HX: Cough x 3 weeks TECHNIQUE: Imaging protocol: Radiologic exam of the chest. Views: 2 views. COMPARISON: CT CHEST WO 01/26/2023 1:12 PM FINDINGS: Lungs: Unremarkable. No consolidation. Pleural spaces: Unremarkable. No pleural effusion. No pneumothorax. Heart/Mediastinum: Unremarkable. No cardiomegaly. Bones/joints: Unremarkable. IMPRESSION: No acute findings. Dictated and Authenticated by: Micki Mcadams MD. Ordering:P.DASHAWN Garvey MD
[2023-03-05] MEDS: Dexamethasone 10 MG/ML VIAL PO (08:52)
[2023-03-05] MEDS: Albuterol 2.5 MG/3 ML INH SOLN VIAL UPD (08:52)
[2023-03-05 09:48] VITALS: BP 142/80; PULSE 85; RESP 24; TEMP 36.8; O2SAT 99
== END 2023-03-05 09:48 | disposition home or self-care (01) ==
PROVIDERS: Emergency Provider Emergency Medicine; PCP Student in an Organized Health Care Education/Training Program
DX: R05.9 Cough, unspecified (principal); R06.2 Wheezing
CPT/HCPCS: 94640; 99283; 71046; 99284; J1100; J7613

== ENCOUNTER 2023-03-08 06:44 | Emergency (ER) | payer BC, SELFPAY ==
[2023-03-08 06:47] VITALS: BP 153/60; PULSE 74; RESP 16; TEMP 36.3; O2SAT 96
[2023-03-08 07:11] VITALS: PULSE 78; RESP 16; O2SAT 95
[2023-03-08] MEDS: Albuterol 2.5 MG/3 ML INH SOLN VIAL UPD (07:11)
--- NOTE | 2023-03-08 07:14 | ED.GENADUL_ITS ---
Discharge Plan Disposition Patient Disposition: Home Condition: Improving Discharge Details Chief Complaint: RespSymp Clinical Impression: Wheeze, Cough Primary Care Provider: Zeynep Bill ED Provider: Guru Hood Home Meds and New Rx's Prescriptions: No Action cholecalciferol (vitamin D3) 250 mcg (10,000 unit) capsule 250 mcg PO QWEEK Qty: 10 0RF Rx Instructions: Take weekly, then we will start daily @ lower dose (re-check 16 weeks) multivitamin Tablet 1 tab PO DAILY triamcinolone acetonide 0.5 % ointment 1 applic Topical BID PRN (Reason: eczema) Qty: 80 2RF Hold Instructions: Home Medication placed on hold at Doctor's office Rx Instructions: 4 FTU for scalp, nasal, ear patches BID x 2 week intervals over winter lovastatin 10 mg tablet 10 mg PO DAILY Qty: 90 3RF Rx Instructions: Please substitute per insurance coverage. Generic ok. cholecalciferol (vitamin D3) [Vitamin D3] 50 mcg (2,000 unit) capsule 6,000 unit PO DAILY Rx Instructions: Takes in Multivitamin. estradiol 0.01 % (0.1 mg/gram) cream 1 g vaginal .2xwk Rx Instructions: per note dated 04/01/21 cgc aspirin 81 MG tablet,chewable 1 tab PO DAILY Discharge Instructions Instructions: Acute Cough (ED), Wheezing (ED) Additional Instructions: Please follow-up closely with your primary care physician. Return to the emergency department for any worsening symptoms Medical Decision Making 57-year-old female presents with recurrent cough and wheeze has been chronic for the past several weeks, improved with nebs and steroids yesterday. Negative chest x-ray. No chest pain no nausea no vomiting no fevers no chills no diaphoresis. Likely reactive airway disease, patient does not have risk factors for COPD, consider environmental triggers such as viral illness or wildfire smoke; low suspicion for ACS PE pneumonia pneumothorax or aortic pathology. Must also consider GERD however no epigastric discomfort or reflux symptoma tology. Trial of nebs, if improved will discharge patient on metered-dose inhaler. 7: 49 patient feeling better after nebs. Will discharge with albuterol metered- dose inhaler. Encourage patient to follow-up close with her primary care physician and return to the emergency department for any worsening symptoms. Expressed that if the symptoms continue she would warrant further evaluation with blood work and/or further imaging to rule out any other pathology that could be contributing to new chronic wheezing/shortness of breath. HPI General Date/Time Provider Initiated Documentation: 03/08/23 06:46 . HPI Narrative: 57-year-old female presents with recurrent wheezing and cough. Denies history of smoking, no fevers no chills no nausea no vomiting. Was seen here yesterday with improvement after nebs and steroids. Negative chest x-ray Related Data Home Medications Medication Instructions Recorded Confirmed aspirin 81 mg chewable tablet 1 tab PO DAILY 06/20/16 03/05/23 cholecalciferol (vitamin D3) 50 6,000 unit PO DAILY 02/24/21 03/05/23 mcg (2,000 unit) capsule (Vitamin D3) multivitamin 1 tab PO DAILY 02/24/21 03/05/23 estradiol 0.01% (0.1 mg/gram) 1 g vaginal .2xwk 04/02/21 03/05/23 vaginal cream lovastatin 10 mg tablet 10 mg PO DAILY #90 tabs 06/15/22 03/05/23 triamcinolone acetonide 0.5 % 1 applic topical BID PRN eczema 06/15/22 03/05/23 topical ointment #80 grams cholecalciferol (vitamin D3) 250 250 mcg PO QWEEK #10 caps 12/21/22 03/05/23 mcg (10,000 unit) capsule Previous Rx's Medication Instructions Recorded lovastatin 10 mg tablet 10 mg PO DAILY #90 tabs 06/15/22 triamcinolone acetonide 0.5 % 1 applic topical BID PRN eczema 06/15/22 topical ointment #80 grams cholecalciferol (vitamin D3) 250 250 mcg PO QWEEK #10 caps 12/21/22 mcg (10,000 unit) capsule Allergies Allergy/AdvReac Type Severity Reaction Status Date / Time Penicillins Allergy Unknown as child Verified 12/21/22 15:45 General Stated Complaint: RespSymp PETEY: 4 Review of Systems Narrative: Review of Systems Constitutional: negative Eyes: negative ENT: negative Cardiovascular: negative Respiratory: Cough, wheeze Gastrointestinal: negative : negative Musculoskeletal: negative Skin: negative Neurologic: negative Psych: negative PFSH All Active Problems (Updated 03/08/23 @ 07:50 by Guru Hood MD) Cough (Acute) Wheeze (Acute) Cough (Acute) Skin lesion of scalp (Acute) Small, nonhealing right bottom hairline probable excoriation but following because of nonhealing.. Hypovitaminosis D (Acute) Morning headache (Acute) Perimenopausal (Acute) Mid, per [facility] testing (2019) .. Rectocele (Acute) Cystocele, midline (Acute) 1-2nd degree Hepatomegaly (Acute ~09/12/20) Abdominal Ultrasound consistent with hepatic steatosis. A few hepatic cysts noted. Steatosis of liver (Acute 02/02/16) Hepatic cyst (Acute 02/10/16) Hepatic Cysts, no follow up needed per RAD ([facility] on [place])(fluid pockets).Described in CT as hypodensity .. NOT a mass. ik, 12/2019 Liver masses (Acute 02/02/16) Hepatic Cysts, no follow up needed per RAD ([facility] on [place])(fluid pockets).Described in CT as hypodensity .. NOT a mass. Anxiety (Chronic) Supportive work environment has helped day to day anxiety. Eczema (Acute 07/14/15) Episodic use or triamcinalone; well-aware of 7-10 day max (holiday) Impaired fasting glucose (Acute 05/09/15) Lung nodule (Acute 02/02/16) 6 mo f/u 08/10/2016: stable 03/2017. Recheck [ ] 6mm, RLL. Mild obstructive sleep apnea (Acute 08/15/17) rx for auto cpap 6-16 cm sent to [facility] per sleep study note dated 08/15/17. Schatzki's ring (Acute 11/17/15) EGD 11/10/2015 Nighat's thyroiditis (Acute) 03/08/18 Endo [facility] [place]inodular goiter (Acute ~01/2018) ID on U/S, 01/27/18 (..multi-nodular goiter. No dominant mass identified). Endo referral made. IBS (irritable bowel syndrome) (Chronic) Probable Dx, based on bloating, easily constipated, reflux, gas pains .. Medical History (Updated 03/08/23 @ 07:50 by Guru Hood MD) Bilateral plantar fasciitis (03/10/21) appreciated Weeks Pod Breast tenderness Pain and tenderness, LEFT, upper/outer (almost a line from axilla toward nipple)(no nodule on exam, but softer/pliable?) ik Diverticulosis Dyskinesia of gallbladder (PROBABLY THE PARAESOPH HIATAL HERNIA! )Per [facility] Gastroenterology note from 02/17/21, F/U 03/12/[address] Cespedes, Surgeon for gallbladder, epigastirc RUQ pain Epigastric abdominal pain Probably the paraesophageal, hiatal hernia (sliding); repaired 08/2021 Fibroadenoma of right breast in female (07/14/15) Gastroesophageal reflux disease with esophagitis (11/17/15) Post severe hiatal hernia REPAIR (Dr. Gutierrez)([facility] EGD 11/10/2015 .. 06/23/21: Consideration of paraesophageal hernia and fundoplication ([facility] GERD (gastroesophageal reflux disease) Hiatal hernia (11/17/15) 08/06/21 Lap paraesogheal hernia repair at [facility] w/fundoplasty EGD 11/10/2015 Periodic heart flutter (06/2018) Continuing heart flutter, especially worrisome with new thyroiditis, auto- immun Dx. Holtor NEG, but showing 6 PVS, 198 PACs. WIll meet with cardio to review, 08/21/18 [ ] Perioral dermatitis Pyloric stenosis, congenital Resolved on its own w/o surgery per pt Surgical History H/O esophageal hernia repair 08/05/21 done laparoscopically [facility] [place] Surgery History of repair of hiatal hernia 08/2021: PARAesophageal hernia and fundoplication ([facility] History of surgery Bxs from right breast Ligation of fallopian tube (10/04/89) Vaginal hysterectomy (04/28/09) Sparing ovaries, taking out cervix. Dr. García Family History Mother , Lung CA Diabetes Personal history of malignant neoplasm lung ca Sister No problems noted. Sister Hyperlipidemia Grandfather , Enlarged heart Diabetes Maternal Aunt Diabetes Social History (Updated 11/26/22 @ 11:24 by Geeta Hancock, JONATHAN) Smoking/Tobacco Use Status: Former Tobacco Use Quit Date: 06/06/77 Tobacco: How many years used: 4 Smoking risk assessment performed?: Yes Alcohol Intake: never Drug use: Never Substance use type: does not use Adopted: No Caregiver/Support person: No Foster care: No Household members: spouse Number of Children: 3 number of grandchildren: 6 Communication Needs: Corrective Lenses Education Level: high school Do you need help understanding health information?: Rarely current occupation: [employer] Pets and animals: Yes (1) Pets and animals: dog(s) Sexually active: Yes Do you think of yourself as: straight/heterosexual Current gender identity: female What is your relationship status?: How often do you talk on the phone with friends or family?: three or more times per week How often do you get together with friends or relatives?: three or more times per week Do you belong to any clubs or organized social groups?: no Panel score (0-1 are the most socially isolated patients): 2 What type of physical activity do you participate in: none Duration: 15-30 minutes/day Frequency: 3-4 times per week [place]/Scientologist: Scientologist Special carolnia needs: No Seatbelt use: always Helmet use: No Drive 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 Do you feel safe at home: Yes Do you feel safe in your relationship?: Yes Female Reproductive History Menstrual Age of Menarche: 13 Exam Narrative Exam Narrative: Physical Examination General: alert, awake, cooperative, resting comfortably, no acute distress HEENT: normocephalic, atraumatic; PERRL, EOM intact, conjunctiva normal; no nasal discharge; moist mucous membranes, oral and pharyngeal mucosa normal, tolerating secretions Neck: supple, trachea midline; full ROM Chest: normal to inspection Respiratory: normal respiratory effort, speaking in full sentences, clear to auscultation, mild expiratory wheeze bilaterally Cardiac: regular rate, regular rhythm, S1S2 intact, no murmurs rubs or gallops GI: abdomen soft, non-tender, non-distended; no palpable mass or hepatosplenomegaly Skin: no lesions, rashes or trauma appreciated Neuro: AAOx3, normal speech, moving all extremities Extremities: No peripheral edema Psych: Appropriate mood and affect Course Vital Signs Vital signs: Vital Signs Temperature 36.3 C L 03/08/23 06:47 Pulse 74 03/08/23 06:47 Respiratory Rate 16 03/08/23 06:47 Blood Pressure 153/60 H 03/08/23 06:47 Pulse Oximetry 96 03/08/23 06:47 Temperature 36.3 C L 03/08/23 06:47 Temperature Source Temporal Artery Scan 03/08/23 06:47 Pulse 78 03/08/23 07:11 Respiratory Rate 16 03/08/23 07:11 Respiratory Effort Normal, Non-Labored 03/08/23 06:50 Respiratory Depth Normal 03/08/23 06:50 Blood Pressure 153/60 H 03/08/23 06:47 Pulse Oximetry 95 03/08/23 07:11 Oxygen Delivery Method Room Air 03/08/23 07:11 Oxygen Flow Rate 0 03/08/23 07:11 Pain Level 0 03/08/23 06:47
== END 2023-03-08 08:10 | disposition home or self-care (01) ==
PROVIDERS: Emergency Provider Emergency Medicine; PCP Student in an Organized Health Care Education/Training Program
DX: R06.2 Wheezing (principal); Z79.82 Long term (current) use of aspirin; Z87.891 Personal history of nicotine dependence
CPT/HCPCS: 99283; 99282; J7613

== ENCOUNTER 2023-06-17 04:02 | Outpatient (CLI) | payer BC, SELFPAY ==
[2023-06-17 08:46] LABS: ALT 25 U/L (14-59); AST 15 U/L (15-37); Albumin 3.6 g/dL (3.4-5.0); Alkaline Phosphatase 86 U/L (46-116); Anion Gap 4.9 mmol/L (3-11); BUN 15 mg/dL (7-18); CO2 29.1 mmol/L (21.0-32.0); CREATININE 0.8 mg/dL (0.55-1.02); Calcium 9.1 mg/dL (8.5-10.1); Calculated LDL 95 mg/dL (<100); Chloride 104 mmol/L (98-107); Cholesterol 179 mg/dL (<200); Estimated GFR 85.35 (mL/min/1.73m2); Glucose 100 mg/dL (74-106); HDL Cholesterol 65 mg/dL (40-60); Potassium 3.9 mmol/L (3.5-5.1); Sodium 138 mmol/L (136-145); Total Protein 7.5 g/dL (6.4-8.2); Triglyceride 96 mg/dL (<150)
[2023-06-17 08:55] LABS: Bilirubin, Direct 0.2 mg/dL (0.0-0.2)
[2023-06-17 09:00] LABS: Vitamin D 25 Total 34.1 ng/mL (30-100)
[2023-06-20 16:51] LABS: Baker's Yeast, IgE <0.10 kU/L (<0.70); Banana, IgE <0.10 kU/L (<0.70); Barley, IgE <0.10 kU/L (<0.70); Beef IgE <0.10 kU/L (<0.70); Black/White Pepper IgE <0.10 kU/L (<0.70); Broccoli IgE <0.10 kU/L (<0.70); Cacao/Cocoa, IgE <0.10 kU/L (<0.70); Cinnamon, IgE <0.10 kU/L (<0.70); Corn-Food IgE <0.10 kU/L (<0.70); Milk, IgE <0.10 kU/L (<0.70); Milk, Processed, IgE <0.10 kU/L (<0.70); Onion, IgE <0.10 kU/L (<0.70); Soybean IgE <0.10 kU/L (<0.70); Strawberry, IgE <0.10 kU/L (<0.70); White Potato, IgE <0.10 kU/L (<0.70)
[2023-06-20 17:12] LABS: Egg Whole IgE <0.10 kU/L (<0.70)
[2023-06-28 11:22] LABS: Egg Whole IgG <2.0 mcg/mL (<2.0)
== END 2023-06-17 04:03 | disposition home or self-care (01) ==
LOC: LBO 04:02
PROVIDERS: Absent Provider Student in an Organized Health Care Education/Training Program; PCP Student in an Organized Health Care Education/Training Program; Referring Provider Student in an Organized Health Care Education/Training Program; Visit Provider Student in an Organized Health Care Education/Training Program
DX: R79.89 Other specified abnormal findings of blood chemistry (principal); K20.90 Esophagitis, unspecified without bleeding; K30 Functional dyspepsia; R14.0 Abdominal distension (gaseous); Z84.89 Family history of other specified conditions; Z86.2 Personal history of diseases of the blood and blood-forming organs and certain disorders involving the immune mechanism; E55.9 Vitamin D deficiency, unspecified; Z13.220 Encounter for screening for lipoid disorders
CPT/HCPCS: 36415; 80048; 80061; 80076; 82306; 86001; 86003

== ENCOUNTER 2023-09-11 07:41 | Emergency (ER) | payer BC, SELFPAY ==
[2023-09-11 07:45] VITALS: BP 155/56; PULSE 76; RESP 18; TEMP 36.7; O2SAT 95
[2023-09-11 07:50] VITALS: BP 155/56; PULSE 76; RESP 18; TEMP 36.7; O2SAT 95
--- NOTE | 2023-09-11 08:00 | RT.EKG_ITS ---
APPROVED REPORT Exam: Resting ECG Reason for Exam: epigastric abdominal pain Patient Location: E HR:59 bpm ECG Measurements Heart Rate 59 AXIS ND 147 P 58 QRSd 83 QRS -1 QT 408 T 63 QTc 405 Conclusion Sinus bradycardia...rate< 60
--- NOTE | 2023-09-11 08:04 | ED.GENADUL_ITS ---
Discharge Plan Disposition Patient Disposition: Home Discharge Details Chief Complaint: Abd Prob Clinical Impression: Abdominal pain Primary Care Provider: Zeynep Bill ED Provider: Parish Perdomo Home Meds and New Rx's Prescriptions: No Action multivitamin Tablet 1 tab PO DAILY triamcinolone acetonide 0.5 % ointment 1 applic Topical BID PRN (Reason: eczema) Qty: 80 2RF Hold Instructions: Home Medication placed on hold at Doctor's office Rx Instructions: 4 FTU for scalp, nasal, ear patches BID x 2 week intervals over winter lovastatin 10 mg tablet 10 mg PO DAILY Qty: 90 3RF Rx Instructions: Please substitute per insurance coverage. Generic ok. estradiol 0.01 % (0.1 mg/gram) cream 1 g vaginal .2xwk Rx Instructions: per note dated 04/01/21 [facility] cholecalciferol (vitamin D3) 1,250 mcg (50,000 unit) capsule 1,250 mcg PO QWEEK Qty: 10 0RF pantoprazole 40 mg tablet,delayed release (DR/EC) 40 mg PO DAILY Rx Instructions: 30 minutes before supper Discharge Instructions Instructions: Abdominal Pain (ED) Additional Instructions: You were seen in the emergency department for abdominal pain. We performed labs and a CAT scan that were unremarkable other than some positive. Continue with your bowel prep. Keep your appointment for colonoscopy/endoscopy. Return here for worsening symptoms. Referrals: Zeynep Bill DO [Primary Care Provider] - 1 week HPI General Date/Time Provider Initiated Documentation: 09/11/23 07:43 . HPI Narrative: 57-year-old female presents with abdominal pain. Says she had a Joselin fundoplication a few years ago. She has been dealing with some epigastric abdominal pain for months to even a year or 2 now. She says this morning she woke up initially feeling fine but got up and immediately had epigastric abdominal discomfort then radiating everywhere. No nausea or vomiting. No fevers or chills. No diarrhea or constipation. No black or bloody stools. No urinary symptoms. No vaginal bleeding or discharge. Pain would go away. She started to drive here and the pain started to get better but she was worried and still came to the emergency department. Says the pain is now nearly gone. Denies any other complaints. No other abdominal surgeries reported. Related Data Home Medications Medication Instructions Recorded Confirmed multivitamin 1 tab PO DAILY 02/24/21 09/11/23 estradiol 0.01% (0.1 mg/gram) 1 g vaginal .2xwk 04/02/21 09/11/23 vaginal cream triamcinolone acetonide 0.5 % 1 applic topical BID PRN eczema 06/15/22 09/11/23 topical ointment #80 grams cholecalciferol (vitamin D3) 1,250 1,250 mcg PO QWEEK #10 caps 06/17/23 09/11/23 mcg (50,000 unit) capsule pantoprazole 40 mg tablet,delayed 40 mg PO DAILY 06/29/23 09/11/23 release lovastatin 10 mg tablet 10 mg PO DAILY #90 tabs 07/27/23 09/11/23 Previous Rx's Medication Instructions Recorded triamcinolone acetonide 0.5 % 1 applic topical BID PRN eczema 06/15/22 topical ointment #80 grams cholecalciferol (vitamin D3) 1,250 1,250 mcg PO QWEEK #10 caps 06/17/23 mcg (50,000 unit) capsule lovastatin 10 mg tablet 10 mg PO DAILY #90 tabs 07/27/23 Allergies Allergy/AdvReac Type Severity Reaction Status Date / Time Penicillins Allergy Unknown as child Verified 09/11/23 07:48 General Stated Complaint: Abd Prob PETEY: 3 Review of Systems Constitutional Constitutional: Denies chills, Denies fever(s) and Denies headache(s) Eyes Eyes: Denies change in vision ENT Ears, Nose, Mouth, and Throat: Denies headache(s) and Denies odynophagia Cardiovascular Cardiovascular: Denies chest pain and Denies dyspnea Respiratory Respiratory: Denies dyspnea Gastrointestinal Gastrointestinal: Reports abdominal pain, Denies diarrhea, Denies nausea, Denies odynophagia and Denies vomiting Genitourinary Genitourinary: Denies dysuria Musculoskeletal Musculoskeletal: Denies myalgias Integumentary/Breasts Skin/Breast: Denies changing lesions Neurologic Neurologic: Denies behavioral changes and Denies headache(s) Psychiatric Psychiatric: Denies behavioral changes Endocrine Endocrine: Denies heat intolerance Hematologic/Lymphatic Hematologic/Lymphatic: Denies lymphadenopathy Exam Const General: cooperative Nutritional Appearance: average body habitus Orientation: alert, awake and oriented x3 HENMT Head: normal to inspection Ears: external ears normal Mouth: moist mucous membranes Eyes Pupils: PERRL EOM: EOM intact bilaterally and No nystagmus Neck Neck: full ROM and no tracheal deviation Chest Chest: normal inspection of the chest Resp Auscultation: clear to auscultation bilaterally Cardio Rate: regular rate Rhythm: regular rhythm GI Inspection: normal to inspection Palpation: soft, no guarding, not rigid and nontender Back/Spine/Pelvis Back: No no CVA tenderness Thoracic/Lumbar Spine: thoracic and lumbar spine normal to inspection Skin General skin exam: no rashes or lesions noted Neuro General: patient alert, patient awake and patient oriented x3 Cranial Nerves: CN's II-XI intact bilaterally, PERRL and no nystagmus Cognition: normal cognition Motor: muscle tone normal throughout and strength 5/5 throughout Sensory Exam: no sensory deficits noted Extrem General: normal to inspection Course This is a 57-year-old female who presents with abdominal pain. Could represent an intra-abdominal abscess such as appendicitis or cholecystitis and will get CT abdomen pelvis to further evaluate. This will also evaluate for bowel obstruction and kidney stones which I think are much less likely. Will get biliary labs to look for signs of hepatitis, pancreatitis, or other biliary disease. Will get broad labs to look for electrolyte or metabolic cause of the patient's symptoms. Sounds like she has been dealing with this chronically and could represent gastritis and symptoms are now resolving so no role for intervention presently. She is actually supposed to get an endoscopy and colonoscopy tomorrow. Will await initial workup as above and reevaluate. Reevaluation(s) Time: 09:46 Reevaluation: Labs unremarkable. CT abdomen pelvis unremarkable. Patient is symptom free. Has some constipation and educated her on this and she has colonoscopy and endoscopy tomorrow. Will discharge with return precautions. Vital Signs Vital signs: Vital Signs Temperature 36.7 C 09/11/23 07:45 Pulse 76 09/11/23 07:45 Respiratory Rate 18 09/11/23 07:45 Blood Pressure 155/56 H 09/11/23 07:45 Pulse Oximetry 95 09/11/23 07:45 Temperature 36.7 C 09/11/23 07:50 Pulse 76 09/11/23 07:50 Respiratory Rate 18 09/11/23 07:50 Respiratory Effort Normal, Non-Labored 09/11/23 07:50 Blood Pressure 155/56 H 09/11/23 07:50 Blood Pressure Position Sitting 09/11/23 07:50 Pulse Oximetry 95 09/11/23 07:50 Oxygen Delivery Method Room Air 09/11/23 07:50 Oxygen Flow Rate 0 09/11/23 07:50 Pain Level 4 09/11/23 07:50 Medical Decision Making Imaging Data Radiologic Study: Radiologist's impression: Constipation but otherwise unremarkable Lab Data Lab results reviewed: Yes I reviewed the patient's lab results. Lab results narrative: Labs grossly unremarkable ECG Data Attestation: I personally reviewed and interpreted this ECG (s) as follows: Interpretation: Normal sinus rhythm with no ischemic changes. Quality:SDOH Health Related Social Needs: No Data to Display PFSH All Active Problems (Updated 09/11/23 @ 09:52 by Parish Perdomo MD) Abdominal pain (Acute) Chronic abdominal pain (Acute) Hx of autoimmune disorder (Acute) Family hx-allergic disease (Acute) son and dtr (+) egg allergy (ID via Celiac Panel testing) Skin lesion of scalp (Acute) Small, nonhealing right bottom hairline probable excoriation but following because of nonhealing.. Hypovitaminosis D (Acute) Morning headache (Acute) Perimenopausal (Acute) Mid, per ENdo testing (2019) .. Rectocele (Acute) Cystocele, midline (Acute) 1-2nd degree Hepatomegaly (Acute ~09/12/20) Abdominal Ultrasound consistent with hepatic steatosis. A few hepatic cysts noted. Steatosis of liver (Acute 02/02/16) Hepatic cyst (Acute 02/10/16) Hepatic Cysts, no follow up needed per RAD ([facility] on US)(fluid pockets).Described in CT as hypodensity .. NOT a mass. ik, 12/2019 Liver masses (Acute 02/02/16) Hepatic Cysts, no follow up needed per RAD (Anacho[facility] on US)(fluid pockets).Described in CT as hypodensity .. NOT a mass. Anxiety (Chronic) Supportive work environment has helped day to day anxiety. Eczema (Acute 07/14/15) Episodic use or triamcinalone; well-aware of 7-10 day max (holiday) Impaired fasting glucose (Acute 05/09/15) Lung nodule (Acute 02/02/16) 6 mo f/u 08/10/2016: stable 03/2017. Recheck [ ] 6mm, RLL. Mild obstructive sleep apnea (Acute 08/15/17) rx for auto cpap 6-16 cm sent to [facility] per sleep study note dated 08/15/17. Schatzki's ring (Acute 11/17/15) EGD 11/10/2015 Nighat's thyroiditis (Acute) 03/08/18 Endo [facility] [place] Multinodular goiter (Acute ~01/2018) ID on U/S, 01/27/18 (..multi-nodular goiter. No dominant mass identified). Endo referral made. IBS (irritable bowel syndrome) (Chronic) Probable Dx, based on bloating, easily constipated, reflux, gas pains .. Medical History Bilateral plantar fasciitis (03/10/21) appreciated Weeks Pod Breast tenderness Pain and tenderness, LEFT, upper/outer (almost a line from axilla toward nipple)(no nodule on exam, but softer/pliable?) ik Dyskinesia of gallbladder (PROBABLY THE PARAESOPH HIATAL HERNIA! )Per [facility] Gastroenterology note from 02/17/21, F/U 03/12/[address] Cespedes, Surgeon for gallbladder, epigastirc RUQ pain Epigastric abdominal pain Probably the paraesophageal, hiatal hernia (sliding); repaired 08/2021 Diverticulosis Fibroadenoma of right breast in female (07/14/15) Periodic heart flutter (06/2018) Continuing heart flutter, especially worrisome with new thyroiditis, auto- immun Dx. Holtor NEG, but showing 6 PVS, 198 PACs. WIll meet with cardio to review, 08/21/18 [ ] Perioral dermatitis Hiatal hernia (11/17/15) 08/06/21 Lap paraesogheal hernia repair at [facility] [place] w/fundoplasty EGD 11/10/2015 Gastroesophageal reflux disease with esophagitis (11/17/15) Post severe hiatal hernia REPAIR (Dr. Gutierrez)([facility] [place]). EGD 11/10/2015 .. 06/23/21: Consideration of paraesophageal hernia and fundoplication ([facility] [place]). GERD (gastroesophageal reflux disease) Pyloric stenosis, congenital Resolved on its own w/o surgery per pt Surgical History History of repair of hiatal hernia 08/2021: PARAesophageal hernia and fundoplication ([facility] [place]). H/O esophageal hernia repair 08/05/21 done laparoscopically [facility] [place] General Surgery History of surgery Bxs from right breast Ligation of fallopian tube (10/04/89) Vaginal hysterectomy (04/28/09) Sparing ovaries, taking out cervix. Dr. García Family History Mother , Lung CA Diabetes Personal history of malignant neoplasm lung ca Sister No problems noted. Sister Hyperlipidemia Grandfather , Enlarged heart Diabetes Maternal Aunt Diabetes Social History Smoking/Tobacco Use Status: Former Tobacco Use Quit Date: 06/06/77 Tobacco: How many years used: 4 Smoking risk assessment performed?: Yes Alcohol Intake: never Drug use: Never Substance use type: does not use Adopted: No Caregiver/Support person: No Foster care: No Household members: spouse Number of Children: 3 number of grandchildren: 6 Communication Needs: Corrective Lenses Education Level: high school Do you need help understanding health information?: Rarely current occupation: [employer] Pets and animals: Yes (1) Pets and animals: dog(s) Sexually active: Yes Do you think of yourself as: straight/heterosexual Current gender identity: female What is your relationship status?: How often do you talk on the phone with friends or family?: three or more times per week How often do you get together with friends or relatives?: three or more times per week Do you belong to any clubs or organized social groups?: no Panel score (0-1 are the most socially isolated patients): 2 What type of physical activity do you participate in: none Duration: 15-30 minutes/day Frequency: 3-4 times per week [place]/Jew: Moravian Special carolina needs: No Seatbelt use: always Helmet use: No Drive intox or ride w/intox city driver: No Do you feel safe at home: Yes Do you feel safe in your relationship?: Yes Female Reproductive History Menstrual Age of Menarche: 13
[2023-09-11] MEDS: Normal Saline 1,000 ML 1000 ML IV (08:23)
[2023-09-11 08:26] LABS: Abs Immature Grans 0.02 10^3/uL (0.0-0.06); Absolute Basophil Count 0.04 10^3/uL (0.0-0.2); Absolute Eosinophil Count 0.08 10^3/uL (0.0-0.7); Absolute Lymphocyte Count 1.48 10^3/uL (1.2-3.4); Absolute Monocyte Count 0.46 10^3/uL (0.1-0.8); Absolute Neutrophil Count 3.22 10^3/uL (1.2-6.7); Basophils % 0.8; Eosinophils % 1.5; HCT 47.1 % (36.0-46.0); HGB 15.3 g/dL (11.2-15.7); Immature Grans % 0.4; Lymphocytes % 27.9; MCH 28.9 pg (27.0-33.0); MCHC 32.5 % (32.0-36.0); MCV 89 fL (80-95); MPV 10.9 fL (8.0-11.0); Monocytes % 8.7; Neutrophils % 60.7; Platelet Count 196 10^3/uL (130-400); RBC 5.29 10^6/uL (3.93-5.22); RDW 12.2 % (11.7-14.6); RDW-SD 39.8 fL
[2023-09-11] MEDS: Normal Saline - Diluent 50 ML VIAL IJ (08:27)
[2023-09-11] MEDS: Omnipaque 350 MG/ML 50 ML BTL IJ ×2 (08:28→08:29)
[2023-09-11] MEDS: Normal Saline Flush 10 ML SYR IVP (08:30)
--- NOTE | 2023-09-11 08:37 | DI.CT_ITS ---
Exam(s) CT ABDOMEN PELVIS W EXAM: CT ABDOMEN PELVIS W CLINICAL HISTORY: epigastric abdominal pain. TECHNIQUE: Imaging Protocol: Axial computed tomography images with coronal and sagittal reformatted images were created and reviewed CONTRAST MATERIAL: Intravenous: Omnipaque-350 100cc Oral: None COMPARISON: CT CT ABDOMEN PELVIS W from 03/15/2021 FINDINGS: VISUALIZED LUNG BASES: No nodules nor pleural effusions evident. ABDOMEN: There is no ascites. LIVER: Liver is hypodense implying steatosis. Again noted multiple well-defined hypodensities in radha er, the largest being located inferiorly in the right hepatic lobe and measuring 3 by 2.4 cm. These have the appearance of benign cysts and appear relatively stable.. GALLBLADDER/BILIARY: No obvious gallbladder pathology. CBD is not dilated. PANCREAS: No evidence of pancreatic mass nor dilatation of the pancreatic duct. SPLEEN: Spleen is not enlarged. No obvious intrasplenic lesions. Splenic and portal veins are paten t. ADRENALS: Again noted is an 8 x 9 millimeter stable right adrenal gland nodule, unchanged from previo us and probably a small adenoma. Left adrenal gland remains unremarkable. KIDNEYS:No cysts evident. No solid renal masses. No calculi nor hydronephrosis.. ABDOMINAL AORTA: Abdominal aorta is not enlarged. LYMPH NODES:There is no retroperitoneal nor paraaortic adenopathy. ABDOMINAL WALL: No evidence of significant anterior abdominal wall nor inguinal hernia. GI: There is no evidence of bowel obstruction, free air, nor abscess. However, on today's study the cecum is noted to be mobile and in the central-left side of the pelvis. Appendix is in the midline a nd appears long but unremarkable. There is a prominent amount of fecal material in the colon. No ev idence of small-bowel obstruction. PELVIS: GI: No evidence of appendicitis.Sigmoid diverticulosis without evidence of obvious acute diverticulit is LYMPH NODES: There is no intrapelvic nor inguinal adenopathy. REPRODUCTIVE: Uterus surgically absent. No abnormal adnexal masses. URINARY BLADDER: No calculi nor obvious masses evident OSSEOUS: No fractures and no significant osseous lesions. IMPRESSION: 1. Abundant fecal material in the colon with mobile cecum located left of midline and appendix (which appears unremarkable) is in the midline. Findings consistent with constipation. 2. No evidence of small-bowel obstruction, free air, nor abscess. 3. Previous hysterectomy 4. Multiple hepatic cysts again noted. No new solid hepatic lesions. RADIATION DOSE DELIVERED: Total DLP DATA REPOSITORY: All CT scans at this facility are submitted to the National Radiology Data Registry (NRDR) Dose Index Registry (DIR) with the [employer] (ACR). RADIATION OPTIMIZATION: All CT scans at this facility use at least one of these dose optimization te chniques: automated exposure control; mA and/or kV adjustment per patient size (includes targeted exa ms where dose is matched to clinical indication); or iterative reconstruction.
[2023-09-11 08:39] LABS: ALT 27 U/L (14-59); AST 15 U/L (15-37); Albumin 3.9 g/dL (3.4-5.0); Alkaline Phosphatase 108 U/L (46-116); Anion Gap 8.4 mmol/L (3-11); BUN 13 mg/dL (7-18); Bilirubin, Total 1.1 mg/dL (0.2-1.0); CO2 29.6 mmol/L (21.0-32.0); CREATININE 0.8 mg/dL (0.55-1.02); Calcium 9.1 mg/dL (8.5-10.1); Chloride 105 mmol/L (98-107); Estimated GFR 85.35 (mL/min/1.73m2); Glucose 112 mg/dL (74-106); Potassium 3.9 mmol/L (3.5-5.1); Sodium 143 mmol/L (136-145); Total Protein 7.7 g/dL (6.4-8.2)
[2023-09-11 08:40] LABS: Troponin I < 50 ng/L (< or =60)
[2023-09-11 09:35] LABS: Lab Add On Test DONE
--- NOTE | 2023-09-11 09:37 | DI.VRAD_ITS ---
PROCEDURE INFORMATION: Exam: CT Abdomen And Pelvis With Contrast Exam date and time: 09/11/2023 8:29 AM Age: 57 years old Clinical indication: Other: Epigastric abdominal pain TECHNIQUE: Imaging protocol: Computed tomography of the abdomen and pelvis with contrast. Radiation optimization: All CT scans at this facility use at least one of these dose optimization techniques: automated exposure control; mA and/or kV adjustment per patient size (includes targeted exams where dose is matched to clinical indication); or iterative reconstruction. Contrast material: OMNI 350; Contrast volume: 100 ml; Contrast route: INTRAVENOUS (IV); COMPARISON: CT ABDOMEN PELVIS W 03/15/2021 12:21 FINDINGS: Lungs: Visualized lung bases are clear. Liver: A scattered cysts in the liver. No mass or ductal dilatation. Gallbladder and bile ducts: Normal. No calcified stones. No ductal dilation. Pancreas: Normal. No mass or ductal dilation. Spleen: Normal. No splenomegaly. Adrenal glands: Normal. No mass. Kidneys and ureters: Normal. No hydronephrosis, calculus, cyst or mass. Stomach and bowel: Stomach and small bowel are normal. Large amount of retained gas and fecal material throughout the colon. Appendix: No evidence of appendicitis. Intraperitoneal space: Unremarkable. No free air. No significant fluid collection. Vasculature: Unremarkable. No abdominal aortic aneurysm or significant atherosclerosis. Lymph nodes: No enlarged retroperitoneal or mesenteric lymph nodes. Urinary bladder: No mass or wall thickening. Reproductive: Uterus is absent. No adnexal cyst or mass. Bones/joints: Unremarkable. No acute fracture. No lytic lesion. Soft tissues: Unremarkable. IMPRESSION: Constipation. No other acute abnormality. Dictated and Authenticated by: Aden Khan MD. Ordering:YOAV Lugo MD
[2023-09-11 09:45] LABS: Lipase 45 U/L (16-77)
[2023-09-11 10:01] VITALS: BP 126/70; PULSE 61; RESP 16; TEMP 36.6; O2SAT 99
== END 2023-09-11 10:02 | disposition home or self-care (01) ==
PROVIDERS: Emergency Provider Student in an Organized Health Care Education/Training Program; PCP Student in an Organized Health Care Education/Training Program
DX: R10.13 Epigastric pain (principal); Z87.891 Personal history of nicotine dependence
CPT/HCPCS: 36415; 80053; 83690; 93005; 96360; 99285; 74177; 83735; 84484; 85025; 93010; 99284; Q9967

== ENCOUNTER → 2023-09-19 05:01 | Outpatient (CLI) | payer BC, SELFPAY ==
--- NOTE | 2023-09-19 08:00 | DI.MAMMO_ITS ---
Exam(s) MAMMO SCREENING EXAM: MAMMO SCREENING CLINICAL HISTORY: screening,z12.39 TECHNIQUE: Mammograms were interpreted according to the usual protocol including computer analysis w PK Clean CAD system, tomosynthesis and C-view imaging. COMPARISON: 2014 through 2022 FINDINGS: The breasts are composed of scattered fibroglandular densities, Breast Density category B. No suspicious masses or suspicious microcalcifications are seen. Biopsy marker clips are again noted in the superior central right breast. Stable areas of nodularity in the right breast. No skin thickening or abnormal axillary lymph nodes are seen. There has been no significant change from prior exams. IMPRESSION: BI-RADS category 2, negative with benign findings. Yearly screening mammography is recommended. Breast Density - Category B, scattered fibroglandular densities. A negative radiographic report should not delay biopsy if a dominant or clinically suspicious mass is present. Up to ten percent of cancers are not identified on mammography. A negative report may reinforce clinical impression. Adenosis and dense breasts may obscure an underlying neoplasm. False positive reports average 6 to 10%. Patient will receive a letter notifying them of these results.
== END ==
PROVIDERS: PCP Student in an Organized Health Care Education/Training Program; Visit Provider Student in an Organized Health Care Education/Training Program
DX: Z12.31 Encounter for screening mammogram for malignant neoplasm of breast (principal)
CPT/HCPCS: 77063; 77067

== ENCOUNTER 2023-11-15 16:21 | Outpatient (CLI) | payer BC, SELFPAY ==
[2023-11-15 11:57] LABS: TSH (W/Ref FT4) 3.79 uIU/mL (0.36-3.74)
[2023-11-15 12:17] LABS: FREE T4 1.05 ng/dL (0.76-1.46)
== END 2023-11-15 16:22 | disposition home or self-care (01) ==
LOC: LBO 16:21
PROVIDERS: PCP Student in an Organized Health Care Education/Training Program; Visit Provider Student in an Organized Health Care Education/Training Program
DX: E04.2 Nontoxic multinodular goiter (principal); E06.3 Autoimmune thyroiditis
CPT/HCPCS: 36415; 84439; 84443

== ENCOUNTER 2023-12-16 01:50 | Outpatient (CLI) | payer BC, SELFPAY ==
[2023-12-16 13:54] LABS: TSH (W/Ref FT4) 2.47 uIU/mL (0.36-3.74)
[2023-12-16 23:15] LABS: T3,Free 3.4 pg/mL (2.8-5.3)
== END 2023-12-16 01:51 | disposition home or self-care (01) ==
LOC: LBO 01:50
PROVIDERS: PCP Student in an Organized Health Care Education/Training Program; Visit Provider Student in an Organized Health Care Education/Training Program
DX: E04.2 Nontoxic multinodular goiter (principal); E06.3 Autoimmune thyroiditis
CPT/HCPCS: 36415; 84443; 84481

== ENCOUNTER 2024-05-22 09:42 | Outpatient (CLI) | payer BC, SELFPAY ==
[2024-05-22 08:13] LABS: Vitamin D 25 Total 28.5 ng/mL (30-100)
[2024-05-22 08:29] LABS: FREE T4 1.05 ng/dL (0.76-1.46)
== END 2024-05-22 09:43 | disposition home or self-care (01) ==
LOC: LBO 09:43
PROVIDERS: PCP Student in an Organized Health Care Education/Training Program; Visit Provider Student in an Organized Health Care Education/Training Program
DX: E06.3 Autoimmune thyroiditis (principal); E04.2 Nontoxic multinodular goiter; R79.89 Other specified abnormal findings of blood chemistry; E55.9 Vitamin D deficiency, unspecified; K90.9 Intestinal malabsorption, unspecified
CPT/HCPCS: 36415; 82306; 84439; 84443

== ENCOUNTER 2024-06-21 23:30 | Outpatient (REF) | payer BC, SELFPAY ==
[2024-06-28 21:55] LABS: Midnight Cortisol <50 ng/dL (<100)
== END 2024-06-21 23:31 | disposition home or self-care (01) ==
LOC: LBN 23:30
PROVIDERS: PCP Student in an Organized Health Care Education/Training Program; Visit Provider Student in an Organized Health Care Education/Training Program
DX: F32.A Depression, unspecified; E28.2 Polycystic ovarian syndrome; R68.89 Other general symptoms and signs
CPT/HCPCS: 82530

== ENCOUNTER 2024-06-29 16:03 | Outpatient (REF) | payer BC, SELFPAY ==
[2024-07-04 20:08] LABS: Midnight Cortisol 140 ng/dL (<100)
== END 2024-06-29 16:04 | disposition home or self-care (01) ==
LOC: LBN 16:03
PROVIDERS: PCP Student in an Organized Health Care Education/Training Program; Visit Provider Nurse Practitioner Family
DX: R68.89 Other general symptoms and signs (principal); F32.A Depression, unspecified; E28.2 Polycystic ovarian syndrome
CPT/HCPCS: 82530

== ENCOUNTER 2024-10-09 00:25 | Outpatient (CLI) | payer BC, SELFPAY ==
--- NOTE | 2024-10-09 06:15 | DI.MAMMO_ITS ---
Exam(s) MAMMO SCREENING EXAM: MAMMO SCREENING CLINICAL HISTORY: screening,Z12.39. TECHNIQUE: Bilateral full field digital CC and MLO mammographic images were obtained with 3D tomosyn thesis and utilizing computer aided detection (CAD). COMPARISON: Prior mammograms were reviewed. FINDINGS: There are no new left breast findings In the right breast there are again noted to separate biopsy marker devices. One of these is next to a small nodule which is unchanged in size but now has acquired some internal calcification; probably a small fibroadenoma. This nodule is unchanged in size from 2015. Another nodule located more late rally is also unchanged from 2015. There are no new spiculated masses nor new malignant appearing microcalcification groups. There is no significant architectural distortion nor skin thickening-retraction. IMPRESSION: Stable benign-appearing findings. No radiographic evidence of malignancy. BI-RADS Category 2 - Benign Findings Breast Density - Category B - There are scattered areas of fibroglandular density. Breast density Category C or D implies that the patient has dense breast tissue. Dense breast tissue can make it harder to find cancer on a mammogram. Dense breast tissue is also associated with an incr eased risk of breast cancer. This information about the result of the mammogram report was provided to the patient to raise their awareness. Use this report when you speak with the patient about their risks for breast cancer, which includes their family history. At that time, you may recommend additional screening tests (Ultrasoun d or MRI) as these tests may add significant information. A negative radiographic report should not delay biopsy if a dominant or clinically suspicious mass is present. Up to ten percent of cancers are not identified on mammography. A negative report may reinforce clinical impression. Adenosis and dense breasts may obscure an underlying neoplasm. False positive reports average 6 to 10%. Patient will receive a letter notifying them of these results.
== END 2024-10-09 00:45 ==
LOC: DI 00:25
PROVIDERS: PCP Nurse Practitioner; Visit Provider Nurse Practitioner
DX: Z12.31 Encounter for screening mammogram for malignant neoplasm of breast (principal); R92.323 Mammographic fibroglandular density, bilateral breasts; D24.1 Benign neoplasm of right breast
CPT/HCPCS: 77063; 77067

== ENCOUNTER 2024-11-06 02:13 | Outpatient (CLI) | payer BC, SELFPAY ==
[2024-11-06 08:33] LABS: ALT 35 U/L (14-59); AST 19 U/L (15-37); Alkaline Phosphatase 118 U/L (46-116); Anion Gap 6.1 mmol/L (3-11); BUN 15 mg/dL (7-18); Bilirubin, Total 1.1 mg/dL (0.2-1.0); CO2 29.9 mmol/L (21.0-32.0); CREATININE 0.7 mg/dL (0.55-1.02); Calcium 9.1 mg/dL (8.5-10.1); Chloride 105 mmol/L (98-107); Estimated GFR 98.95 (mL/min/1.73m2); Glucose 109 mg/dL (74-106); Potassium 4.1 mmol/L (3.5-5.1); Sodium 141 mmol/L (136-145); TSH (W/Ref FT4) 3.39 uIU/mL (0.36-3.74); Total Protein 7.5 g/dL (6.4-8.2)
[2024-11-06 08:47] LABS: Calculated LDL 94 mg/dL (<100); Cholesterol 177 mg/dL (<200); HDL Cholesterol 59 mg/dL (>or=50); Triglyceride 123 mg/dL (<150)
== END 2024-11-06 02:14 | disposition home or self-care (01) ==
LOC: LBO 02:13
PROVIDERS: PCP Nurse Practitioner; Visit Provider Nurse Practitioner
DX: R73.03 Prediabetes; E78.5 Hyperlipidemia, unspecified; E66.9 Obesity, unspecified; E06.3 Autoimmune thyroiditis
CPT/HCPCS: 36415; 80053; 80061; 84443

== ENCOUNTER 2025-03-06 08:32 | Outpatient (CLI) | payer BC, SELFPAY ==
[2025-03-06 14:10] LABS: TSH 2.28 uIU/mL (0.36-3.74)
== END 2025-03-06 08:33 | disposition home or self-care (01) ==
LOC: LBO 08:34
PROVIDERS: PCP Nurse Practitioner; Visit Provider Internal Medicine Endocrinology, Diabetes & Metabolism
DX: E06.3 Autoimmune thyroiditis (principal)
CPT/HCPCS: 36415; 84439; 84443; 86376